=== PATIENT | female | born 1935 | race Caucasian/White ===

== ENCOUNTER 2020-01-11 10:05 | Inpatient (IN) ==
--- NOTE | 2020-01-11 10:16 | Emergency Department Note ---
Impression & Plan Acute ischemic left MCA stroke, Hypoxic, CHF (congestive heart failure) ED Provider Note NAME: SABI MONSALVE AGE: 84 SEX: F : 1935 ARRIVES VIA: Ambulance INFORMANT: EMS ED PROVIDER(S): Walter Maki DO CHIEF COMPLAINT: Altered mental status HPI: Patient is an 84-year-old female who was brought in by EMS. She woke up and was acting normally around 5 AM. They note that she was found by the to be unresponsive. EMS was called. They found to have a right-sided upper extremity flaccid and unresponsive and hypoxic. History is limited. They noted decreased breath sounds on the left and with hypoxia called in For medical command. History is otherwise limited with exception that her diuretics have recently been increased. ROS: Limited secondary to mentation PAST MEDICAL HISTORY:See Below PAST SURGICAL HISTORY:See Below FAMILY HISTORY:See Below SOCIAL HISTORY:See Below HOME MEDICATIONS:See Below ALLERGIES:See Below VITALS:See Below PHYSICAL EXAMINATION: GENERAL: Lying in bed, on nonrebreather, ill-appearing EYE EXAM: Ill-appearing with a leftward gaze OROPHARYNX: mucous membranes are dry NECK: +JVD LUNGS: Crackles bilaterally. Normal chest wall mechanics HEART: no murmurs, S1 normal and S2 normal ABDOMEN: abdomen soft, non-tender, normo-active bowel sounds, no masses, no rebound or guarding. BACK: Back is symmetrical on inspection and there is no deformity, no midline tenderness, no CVA tenderness. SKIN: no rashes and no bruising UPPER EXTREMITIES: upper extremities are grossly normal. LOWER EXTREMITIES: No pitting edema. NEURO EXAM: Laying on bed unresponsive with a leftward gaze eyes open moving left upper extremity spontaneously, no movement in right upper. Withdrawals lower extremities MEDICAL DECISION MAKING: Patient is an 84-year-old female brought in by EMS who I received medical c mand call on and called a stroke alert. She had a flaccid right upper extremity. She was also concerned as patient had diminished breath sounds on the left and was hypoxic and placed on nonrebreather. Instead of going straight to CAT scan she was taken into P1. Chest x-ray performed. Appears to be consistent with CHF. Taken immediately to CT. IV was established blood work was obtained.Labs showed no significant leukocytosis or anemia. INR at 1.5. BMP with slightly elevated glucose. Lactate was elevated at 1.7. LFTs and bilirubin was fairly unremarkable. Troponin was detectable at 0.177. Urine tox is negative. CT head as well as CT angios of the head and neck showed proximal left MCA occlusion. I discussed this with both radiology and [facility] tele-stroke. They evaluate the patient. Patient remained on nonrebreather due to hypoxia while in the ER. Extensive conversations with both the and the Daughter. At this time due to the large occlusion with findings already seen on the Noncon of the head showing ischemic brain neurology felt this patient would not Benefit from transfer. Last known well was 5 PM and she was out of the TPA window. Long conversation with patient's Family as she may benefit from comfort care if she has no improvement In regards to the hypoxia and stroke symptoms as she would not want any significant intervention per her wishes.Discussed with hospitalist for admission. Triage Nursing notes reviewed. Prior medical records reviewed Vital Signs: reviewed and remarkable for Hypoxic Differential diagnosis: Differential Diagnosis includes but is not limited to ischemic Stroke, hemorrhagic stroke, bells palsy, mass, neoplasm, migraine headache, seizure, subarachnoid hemorrhage, TIA, and transient global amnesia. ER treatment provided: See below Diagnostics interpreted by me: ECG:A. fib rate of 69 Left axis DWI in the high lateral leads Septal Q waves Nonspecific ST wave changes in the lateral leads Cardiac Monitoring: An order was placed for continuous cardiac monitoring. The monitor shows a rate of 68 with afib rhythm. Laboratory studies: As stated above and show below. Imaging studies: CT head, CT Rehana of the head neck shows large left MCA occlusion Consultation(s): Discussed with [facility] tele-stroke neurology. Decision was made to not transfer for intervention due to CT findings. ED COURSE: Procedures: none Critical Care: I have personally spent 55 minutes of critical care time in the direct management of this patient. This includes bedside care, interpretation of diagnostic studies, and testing, discussion with consultants, patient, and family members, and other required patient management activities. This 55 minutes is in excess of all separately billable procedures. Past Med/Surg History Medical History Small bowel obstruction due to adhesions Family History Other Coronary heart disease Social History Smoking Status: Never smoker Hx Alcohol Use: No Hx Substance Use: No Preferred Language: Croatian Communication Ability: Unable Beliefs That Will Affect Care: None marital status: Current Living Situation: Spouse Other Information That Helps Us Care for You: No Feels Safe at Home: No Safety Concerns: Feels Safe At This Time Allergies Allergies Allergy/AdvReac Type Severity Reaction Status Date / Time No Known Allergies Allergy Unverified 01/11/20 12:11 Results & Data (ED) Vital Signs Vital Signs - 24 hr 01/11/20 10:11 01/11/20 10:28 01/11/20 10:30 Temperature Temperature Source Pulse Rate 72 69 Pulse Rate from SpO2 Sensor 77 71 Pulse Rhythm Pulse Strength Respiratory Rate Respiratory Effort / Characteristics Respiratory Depth Respiratory Pattern Blood Pressure 168/112 H Blood Pressure Mean 133 Blood Pressure Position Pulse Oximetry 99 100 Oxygen Delivery Method Non-rebreather Non-rebreather Oxygen Flow Rate 10 10 Sepsis Recent Fever Within 48 Hours Sepsis New/Unexplained Change in Mental Status Sepsis Action Taken by Nursing Oxygen Flow Rate - Titration Pulse Oximetry Post Tiitration 01/11/20 10:40 01/11/20 10:45 01/11/20 10:51 Temperature 37 C Temperature Source Oral Pulse Rate 82 66 Pulse Rate from SpO2 Sensor 70 Pulse Rhythm Regular Pulse Strength Normal Respiratory Rate 18 Respiratory Effort / Characteristics Non-Labored Spontaneous Respiratory Depth Normal Respiratory Pattern Regular Blood Pressure 168/112 H Blood Pressure Mean 130 Blood Pressure Position Lying Pulse Oximetry 96 97 Oxygen Delivery Method Non-rebreather Non-rebreather Non-rebreather Oxygen Flow Rate 10 10 Sepsis Recent Fever Within 48 Hours No Sepsis New/Unexplained Change in Mental Status Yes Sepsis Action Taken by Nursing No Action Required Oxygen Flow Rate - Titration Pulse Oximetry Post Tiitration 01/11/20 11:00 01/11/20 11:02 01/11/20 11:15 Temperature Temperature Source Pulse Rate 63 68 66 Pulse Rate from SpO2 Sensor 62 69 63 Pulse Rhythm Pulse Strength Respiratory Rate Respiratory Effort / Characteristics Respiratory Depth Respiratory Pattern Blood Pressure 178/84 H Blood Pressure Mean 129 Blood Pressure Position Pulse Oximetry 95 99 100 Oxygen Delivery Method Non-rebreather Non-rebreather Non-rebreather Oxygen Flow Rate 10 10 10 Sepsis Recent Fever Within 48 Hours Sepsis New/Unexplained Change in Mental Status Sepsis Action Taken by Nursing Oxygen Flow Rate - Titration Pulse Oximetry Post Tiitration 01/11/20 11:16 01/11/20 11:17 01/11/20 11:30 Temperature Temperature Source Pulse Rate 64 63 59 L Pulse Rate from SpO2 Sensor 65 65 60 Pulse Rhythm Pulse Strength Respiratory Rate Respiratory Effort / Characteristics Respiratory Depth Respiratory Pattern Blood Pressure 175/107 H Blood Pressure Mean 133 Blood Pressure Position Pulse Oximetry 99 100 100 Oxygen Delivery Method Non-rebreather Non-rebreather Non-rebreather Oxygen Flow Rate 10 10 10 Sepsis Recent Fever Within 48 Hours Sepsis New/Unexplained Change in Mental Status Sepsis Action Taken by Nursing Oxygen Flow Rate - Titration Pulse Oximetry Post Tiitration 01/11/20 11:31 01/11/20 11:45 01/11/20 11:46 Temperature Temperature Source Pulse Rate 69 69 65 Pulse Rate from SpO2 Sensor 70 67 63 Pulse Rhythm Pulse Strength Respiratory Rate Respiratory Effort / Characteristics Respiratory Depth Respiratory Pattern Blood Pressure 162/88 H 172/81 H Blood Pressure Mean 126 105 Blood Pressure Position Pulse Oximetry 99 100 100 Oxygen Delivery Method Non-rebreather Non-rebreather Non-rebreather Oxygen Flow Rate 8 8 8 Sepsis Recent Fever Within 48 Hours Sepsis New/Unexplained Change in Mental Status Sepsis Action Taken by Nursing Oxygen Flow Rate - Titration Pulse Oximetry Post Tiitration 01/11/20 11:47 01/11/20 12:00 01/11/20 12:01 Temperature Temperature Source Pulse Rate 70 59 L 58 L Pulse Rate from SpO2 Sensor 68 61 59 L Pulse Rhythm Pulse Strength Respiratory Rate Respiratory Effort / Characteristics Respiratory Depth Respiratory Pattern Blood Pressure 175/80 H Blood Pressure Mean 122 Blood Pressure Position Pulse Oximetry 100 99 99 Oxygen Delivery Method Nasal Cannula Nasal Cannula Nasal Cannula Oxygen Flow Rate 2 2 2 Sepsis Recent Fever Within 48 Hours Sepsis New/Unexplained Change in Mental Status Sepsis Action Taken by Nursing Oxygen Flow Rate - Titration Pulse Oximetry Post Tiitration 01/11/20 12:09 01/11/20 12:15 01/11/20 12:16 Temperature Temperature Source Pulse Rate 59 L 55 L Pulse Rate from SpO2 Sensor 57 L 57 L Pulse Rhythm Pulse Strength Respiratory Rate Respiratory Effort / Characteristics Respiratory Depth Respiratory Pattern Blood Pressure 160/70 H Blood Pressure Mean 95 Blood Pressure Position Pulse Oximetry 99 97 97 Oxygen Delivery Method Non-rebreather Nasal Cannula Nasal Cannula Oxygen Flow Rate 8 2 2 Sepsis Recent Fever Within 48 Hours Sepsis New/Unexplained Change in Mental Status Sepsis Action Taken by Nursing Oxygen Flow Rate - Titration 2 Pulse Oximetry Post Tiitration 98 01/11/20 12:30 Temperature Temperature Source Pulse Rate 58 L Pulse Rate from SpO2 Sensor 56 L Pulse Rhythm Pulse Strength Respiratory Rate Respiratory Effort / Characteristics Respiratory Depth Respiratory Pattern Blood Pressure 161/79 H Blood Pressure Mean 93 Blood Pressure Position Pulse Oximetry 96 Oxygen Delivery Method Nasal Cannula Oxygen Flow Rate 2 Sepsis Recent Fever Within 48 Hours Sepsis New/Unexplained Change in Mental Status Sepsis Action Taken by Nursing Oxygen Flow Rate - Titration Pulse Oximetry Post Tiitration Laboratory Data Result diagrams: 01/11/20 10:33 01/11/20 10:33 Lab Results 01/11/20 01/11/20 01/11/20 Range/Units 10:33 10:33 10:33 WBC 6.64 (4.8-10.8) K/uL RBC 4.69 (4.2-5.4) M/uL Hgb 13.6 (12.0-16.0) g/dL Hct 42.7 (37-47) % MCV 91.0 (80-100) fL MCH 29.0 (25-34) pg MCHC 31.9 L (32-36) g/dL RDW Std Deviation 54.2 H (36.4-46.3) fL RDW Coeff of Ilnk 16.5 H (11.5-14.5) % Plt Count 219 (130-400) K/uL MPV 10.1 (7.4-10.4) fL Immature Gran % (Auto) 0.5 % Neut % (Auto) 75.5 % Lymph % (Auto) 16.0 % Daggett % (Auto) 7.8 % Eos % (Auto) 0.0 % Baso % (Auto) 0.2 % Neut # (Auto) 5.02 (1.4-6.5) K/uL Lymph # (Auto) 1.06 L (1.2-3.4) K/uL Daggett # (Auto) 0.52 (0.11-0.59) K/uL Eos # (Auto) 0.00 (0-0.5) K/uL Baso # (Auto) 0.01 (0-0.2) K/uL Immature Gran # (Auto) 0.03 H (0.00-0.02) K/uL PT 15.1 H (9.0-12.0) Seconds INR 1.5 H (0.9-1.1) APTT 30.2 (21.0-31.0) Seconds PTT Ratio 1.1 Sodium 137 (136-145) mmol/L Potassium 3.6 (3.5-5.1) mmol/L Chloride 102 (98-107) mmol/L Carbon Dioxide 24 (21-32) mmol/L Anion Gap 11.0 (3-11) BUN 26 H (7-18) mg/dl Creatinine 1.12 (0.6-1.2) mg/dl Est Cr Clr Drug Dosing 33.7 ml/min Est GFR ( Amer) 51.5 Est GFR (Non-Af Amer) 44.4 BUN/Creatinine Ratio 23.3 H (10-20) Glucose 144 H (70-99) mg/dl POC Glucose (70-99) mg/dl Estimat Average Glucose mg/dl Hemoglobin A1c (4.5-5.6) % Lactate (0.4-2.0) mmol/L Calcium 9.0 (8.5-10.1) mg/dl Magnesium 1.8 (1.8-2.4) mg/dl Total Bilirubin 1.7 H (0.2-1) mg/dl AST 25 (15-37) U/L ALT 16 (12-78) U/L Alkaline Phosphatase 52 (45-117) U/L Troponin I 0.177 H* (0-0.045) ng/ml Total Protein 6.7 (6.4-8.2) gm/dl Albumin 3.1 L (3.4-5.0) gm/dl Globulin 3.6 (2.5-4.0) gm/dl Albumin/Globulin Ratio 0.9 (0.9-2) 01/11/20 01/11/20 01/11/20 Range/Units 10:33 10:33 10:39 WBC (4.8-10.8) K/uL RBC (4.2-5.4) M/uL Hgb (12.0-16.0) g/dL Hct (37-47) % MCV (80-100) fL MCH (25-34) pg MCHC (32-36) g/dL RDW Std Deviation (36.4-46.3) fL RDW Coeff of Link (11.5-14.5) % Plt Count (130-400) K/uL MPV (7.4-10.4) fL Immature Gran % (Auto) % Neut % (Auto) % Lymph % (Auto) % Daggett % (Auto) % Eos % (Auto) % Baso % (Auto) % Neut # (Auto) (1.4-6.5) K/uL Lymph # (Auto) (1.2-3.4) K/uL Daggett # (Auto) (0.11-0.59) K/uL Eos # (Auto) (0-0.5) K/uL Baso # (Auto) (0-0.2) K/uL Immature Gran # (Auto) (0.00-0.02) K/uL PT (9.0-12.0) Seconds INR (0.9-1.1) APTT (21.0-31.0) Seconds PTT Ratio Sodium (136-145) mmol/L Potassium (3.5-5.1) mmol/L Chloride (98-107) mmol/L Carbon Dioxide (21-32) mmol/L Anion Gap (3-11) BUN (7-18) mg/dl Creatinine (0.6-1.2) mg/dl Est Cr Clr Drug Dosing ml/min Est GFR ( Amer) Est GFR (Non-Af Amer) BUN/Creatinine Ratio (10-20) Glucose (70-99) mg/dl POC Glucose 160 H (70-99) mg/dl Estimat Average Glucose 123 mg/dl Hemoglobin A1c 5.9 H (4.5-5.6) % Lactate 2.7 H* (0.4-2.0) mmol/L Calcium (8.5-10.1) mg/dl Magnesium (1.8-2.4) mg/dl Total Bilirubin (0.2-1) mg/dl AST (15-37) U/L ALT (12-78) U/L Alkaline Phosphatase (45-117) U/L Troponin I (0-0.045) ng/ml Total Protein (6.4-8.2) gm/dl Albumin (3.4-5.0) gm/dl Globulin (2.5-4.0) gm/dl Albumin/Globulin Ratio (0.9-2) Administered Medications Aspirin (Aspirin 300 Mg Supp) 300 mg ID Q24H TOÑA Stop: 02/10/20 13:59 Last Admin: 01/11/20 14:33 Dose: 300 mg Documented by: [id number] Discontinued Medications Furosemide (Furosemide 40 Mg/4 Ml Vial) 40 mg IV NOW STA Stop: 01/11/20 12:45 Last Admin: 01/11/20 13:26 Dose: 40 mg Documented by: [id number] Discharge Plan Visit Data Chief Complaint: Stroke Alert ED Provider: Walter Maki Discharge Problem: Acute ischemic left MCA stroke, Hypoxic, CHF (congestive heart failure) Patient Disposition: Admitted As Inpatient Discharge Instructions Interventions: ED Discharge Assessment Last Done: 01/11/20 13:11 Discharge Problem: CHF (congestive heart failure) Qualifiers: Heart failure type: unspecified Heart failure chronicity: acute Qualified Code(s): I50.9 - Heart failure, unspecified
--- NOTE | 2020-01-11 10:27 | XRay Report ---
XR chest 1V portable CLINICAL HISTORY: hypoxic COMPARISON STUDY: No previous studies for comparison. FINDINGS: A skinfold project over the right hemithorax. There is no pneumothorax. There is no definit e pleural effusion. Interstitial thickening is noted. Left perihilar opacities are noted. There is mo derate cardiomegaly. Widening of the right paratracheal stripe is noted. IMPRESSION: 1. Interstitial thickening consistent with pulmonary edema. 2. Left perihilar opacity which likely reflects pulmonary edema although superimposed pneumonia could appear similar. Radiographic follow up is recommended. 3. Widely right paratracheal stripe. This is likely due to vessels but can be assessed on the neck CT A which has been ordered. ACT 112: Negative or not required by law. Electronically signed by: Kalen Collins M.D. 01/11/2020 10:26 AM
--- NOTE | 2020-01-11 10:39 | CT Scan Report ---
CT ANGIOGRAPHY OF THE NECK WITH CONTRAST CLINICAL HISTORY: Stroke evaluation COMPARISON STUDY: No previous studies for comparison. Technique: CT angiography of the carotid and vertebral arteries was obtained using [employer] 320 IV and 3D reconstruction on an independent workstation. NASCET criteria was utilized. Automated exposure c ontrol was utilized for the study. A dose lowering technique was utilized adhering to the principles of ALARA. CT DOSE: 1000.70 mGy.cm Findings: This exam is compromised by motion artifact and difficulty with timing of bolus. Visualized portions of the upper chest partially visualize bilateral pleural effusions, right larger left. Ther e is interlobular septal thickening consistent with pulmonary edema. Right upper lobe airspace opacit y is noted. There is no cervical spine fracture. There is no cervical lymphadenopathy. An apparent 2. 6 cm left upper mediastinal nodule likely reflects a portion of the thyroid gland or an exophytic thy roid nodule. Vessels are suboptimally assessed on this exam. There is moderate plaque within the prox imal right internal carotid artery without significant stenosis. There is also moderate plaque within the proximal left internal carotid artery without cirrhosis. The left vertebral artery is dominant a nd patent. The right vertebral artery is diminutive. The origin of the right vertebral artery is not well visualized on this examination. There is no dissection within the major vessels within the neck. CT of the head will be reported separately. IMPRESSION: 1. Exam mildly compromised by artifact. Moderate plaque within the proximal bilateral internal caroti d arteries without severe stenosis. At most, mild narrowing of the proximal right internal carotid ar jaspreet. 2. Dominant, patent left vertebral artery. Hypoplastic right vertebral artery. 3. Evidence for interstitial and alveolar edema within visualized portions of the lungs. Partially vi sualize bilateral pleural effusions, right larger than left. ACT 112: Negative or not required by law. Electronically signed by: Kalen Collins M.D. 01/11/2020 10:37 AM
--- NOTE | 2020-01-11 10:45 | CT Scan Report ---
HEAD CT NONCONTRAST CT DOSE: HISTORY: Stroke symptoms. TECHNIQUE: Multiaxial CT images of the head were performed without the use of intravenous contrast. A utomated exposure control was utilized for this study. A dose lowering technique was utilized adheri ng to the principles of ALARA. Comparison: None. Findings: The paranasal sinuses and mastoid air cells are clear. The calvarium and skull base are int act. There is no mass, hematoma, midline shift. Loss of the angulo-white differentiation involving the left frontal temporal lobe as well as the left basal ganglia. The total area measures approximately 4 .8 cm and is consistent with a left MCA infarct. Impression: Moderate to large acute left MCA territory infarct. ACT 112: Negative or not required by law. Electronically signed by: Agustin Sanchez M.D. 01/11/2020 10:44 AM
--- NOTE | 2020-01-11 10:48 | CT Scan Report ---
CTA ANGIOGRAPHY OF THE HEAD CLINICAL HISTORY: Stroke evaluation COMPARISON STUDY: No previous studies for comparison. TECHNIQUE: Helical axial images of the head were obtained following uneventful intravenous administr ation of 120 cc of [employer] 320. Sagittal and coronal reconstructions were viewed as well as maximal i ntensity projections on an independent 3-D workstation. Automated exposure control was utilized for the study. A dose lowering technique was utilized adhering to the principles of ALARA. FINDINGS: Exam is compromised by motion artifact. Hypodensity within the left frontal and temporal lo bes represents acute infarct. No acute intracranial hemorrhage, midline shift or mass effect is prese nt. There is moderate plaque within the bilateral cavernous carotids. There is abrupt cut off at the origin of the left middle cerebral artery. This suggest an embolus. Markedly diminished flow within t he more distal branches when compared to the right is noted. The right vertebral artery is hypoplasti c. Left vertebral artery is patent. The left A1 segment is diminutive. There is suspected severe sten osis of the right A2 segment. Moderate multifocal stenoses within the right posterior cerebral artery noted. IMPRESSION: 1. Abrupt occlusion of the left middle cerebral artery at the vessel origin. This is likely due to an embolus. Resultant hypodensity within left MCA territory consistent with acute infarct. No hemorrhag e or mass effect at this time. Findings discussed with Dr. Maki at time of dictation. 2. Additional moderate to severe multifocal stenoses within the intracranial vessels, as described ab ove. ACT 112: Negative or not required by law. Electronically signed by: Kalen Collins M.D. 01/11/2020 10:46 AM
[2020-01-11 10:55] LABS: INR 1.5 (0.9-1.1); Partial Thromboplastin Ratio 1.1; Partial Thromboplastin Time 30.2 Seconds (21.0-31.0); Prothrombin Time 15.1 Seconds (9.0-12.0)
[2020-01-11 10:56] LABS: Basophils # (auto) 0.01 K/uL (0-0.2); Basophils % (auto) 0.2 %; Hematocrit (blood only) 42.7 % (37-47); Hemoglobin 13.6 g/dL (12.0-16.0); Immature Granulocytes # (auto) 0.03 K/uL (0.00-0.02); Immature Granulocytes % (auto) 0.5 %; Lymphocytes # (auto) 1.06 K/uL (1.2-3.4); Mean Corpuscular Hgb Conc 31.9 g/dL (32-36); Mean Platelet Volume 10.1 fL (7.4-10.4); Monocytes # (auto) 0.52 K/uL (0.11-0.59); Monocytes % (auto) 7.8 %; Neutrophils # (auto) 5.02 K/uL (1.4-6.5); Neutrophils % (auto) 75.5 %; Platelet Count 219 K/uL (130-400); RDW Coefficient of Variation 16.5 % (11.5-14.5); RDW Standard Deviation 54.2 fL (36.4-46.3); Red Blood Count 4.69 M/uL (4.2-5.4); White Blood Count 6.64 K/uL (4.8-10.8)
[2020-01-11 11:01] LABS: Albumin Level 3.1 gm/dl (3.4-5.0); BUN Creatinine Ratio 23.3 (10-20); Creatinine Clr Calc Pharmacy 33.7 ml/min; Est GFR (African American) 51.5; Est GFR (Non-African American) 44.4; Magnesium 1.8 mg/dl (1.8-2.4); Potassium 3.6 mmol/L (3.5-5.1)
[2020-01-11 11:37] LABS: Albumin Globulin Ratio 0.9 (0.9-2); Bilirubin,Total 1.7 mg/dl (0.2-1); Globulin 3.6 gm/dl (2.5-4.0); Total Protein 6.7 gm/dl (6.4-8.2); Troponin I 0.177 ng/ml (0-0.045)
--- NOTE | 2020-01-11 12:19 | History & Physical Report ---
Date of Service January 11, 2020 Assessment & Plan (1) CVA (cerebral vascular accident): Patient was brought in with unclear onset time large MCA distribution stroke is seen on imaging. Stroke evaluation did not recommend lytic therapy. Family is at the bedside and they were told of the significance of her stroke. They confirm she is a DNR candidate for the future. We will pursue supportive care and evaluate her progress over the next few days before making a determination of the pursue hospice care. At this time her mental status prohibits swallowing at this time she will be n.p.o. CT scan brain 01/11/2020 Impression: Moderate to large acute left MCA territory infarct. CT angiogram of head 01/03/2020 1. Abrupt occlusion of the left middle cerebral artery at the vessel origin. This is likely due to an embolus. Resultant hypodensity within left MCA territory consistent with acute infarct. No hemorrhage or mass effect at this time. Findings discussed with Dr. Maki at time of dictation. 2. Additional moderate to severe multifocal stenoses within the intracranial vessels CT angiogram of neck 01/03/20201. Exam mildly compromised by artifact. Moderate plaque within the proximal bilateral internal carotid arteries without severe stenosis. At most, mild narrowing of the proximal right internal carotid artery. 2. Dominant, patent left vertebral artery. Hypoplastic right vertebral artery. 3. Evidence for interstitial and alveolar edema within visualized portions of th e lungs. Partially visualize bilateral pleural effusions, right larger than left. (2) Atrial fibrillation: I phoned to pharmacy patient typically takes carvedilol 3.25 twice daily her states she is been on Eliquis for thromboembolic prevention she typically also has other antihypertensives including lisinopril 5 Lasix in the morning and 40 at night and atorvastatin 20 certainly with her swallowing issues these will be held PRN metoprolol IV will be offered her chest x-ray looks to have pulmonary edema on presentation subsequently IV fluids would not be employed both dose of Lasix will be given History of Present Illness Primary Care Provider: Sree Gallegos M.D. 84-year-old female who was brought in by EMS. She woke up and was acting normally around 5 AM. They note that she was found by the to be unresponsive. EMS was called. They found a right-sided upper extremity flaccid unresponsive and hypoxic. History is limited. They noted decreased breath sounds on the left and with hypoxia called in For medical command.History is otherwise limited with exception that her diuretics have recently been increased. Allergies Allergy/AdvReac Type Severity Reaction Status Date / Time No Known Allergies Allergy Unverified 01/11/20 12:11 Past Med/Surg History Medical History (Updated 01/11/20 @ 12:35 by Robbie Espinoza MD) Small bowel obstruction due to adhesions Family History (Updated 01/11/20 @ 12:35 by Robbie Espinoza MD) Other Coronary heart disease Social History (Updated 01/11/20 @ 12:35 by Robbie Espinoza MD) Smoking Status: Never smoker Feels Safe at Home: Yes Review of Systems Review of Systems: Unobtainable due to cognitive status Physical Exam Physical Exam: The patient appeared obtunded with minimal responsiveness Vital signs as documented. Head exam is normocephalic atraumatic no scleral icterus pupils are small with minimal reaction Neck is with 3 cm JVD, thyromegaly, I cannot hear any carotid bruits. Lungs are fine rales at the bases Cardiac exam, irregularly irregular without murmurs Abdominal exam reveals normal bowel sounds, soft non tender, no masses Extremities are chronic venous stasis changes and 1+ edema Neurologic exam is responsive to stimuli flaccid right side upgoing toes bilaterally Skin is with changes to her lower extremities Results & Data Results & Data ([facility]) Vital Signs (Past 12 Hours) Vital Signs Temp Pulse Resp BP Pulse Ox 01/11/20 12:09 99 01/11/20 11:46 65 172/81 H 100 01/11/20 11:45 69 100 01/11/20 11:31 69 162/88 H 99 01/11/20 11:30 59 L 100 01/11/20 11:17 63 100 01/11/20 11:16 64 175/107 H 99 01/11/20 11:15 66 100 01/11/20 11:02 68 178/84 H 99 01/11/20 11:00 63 95 01/11/20 10:45 66 97 01/11/20 10:40 98.6 F 82 18 168/112 H 96 01/11/20 10:30 69 100 01/11/20 10:28 72 99 01/11/20 10:11 168/112 H EKG shows atrial fibrillation controlled ventricular rate PG Care Time/CCT Total # of Minutes Spent Total Time Spent with Patient: Total time spent is greater than 50% in coordination of care (as documented) at patient's floor/unit and/or counseling patient: Coding Level of Care Code 96604 Initial Inpt Care Lvl 3 Diagnoses CVA (cerebral vascular accident) I63.9 Atrial fibrillation I48.91
[2020-01-11] MEDS ORDERED: FUROSEMIDE 40 MG/4 ML VIAL IV STA (12:44)
--- NOTE | 2020-01-11 13:47 | Electrocardiogram Report ---
Test Reason : Blood Pressure : / mmHG Vent. Rate : 069 BPM Atrial Rate : 250 BPM P-R Int : 000 ms QRS Dur : 112 ms QT Int : 486 ms P-R-T Axes : 000 -51 123 degrees QTc Int : 520 ms Poor data quality, interpretation may be adversely affected Atrial fibrillation with premature ventricular or aberrantly conducted complexes Left anterior fascicular block Possible Old Septal infarct Nonspecific ST and T wave abnormality Anterolateral leads Abnormal ECG No previous ECGs available Confirmed by Sudeep Daugherty ([id number]) on 01/11/2020 1:46:30 PM Referred By: REFERRED SELF Confirmed By:Sudeep Daugherty
[2020-01-11] MEDS ORDERED: ONDANSETRON INJ 2 MG/ML 2 ML VIAL IV PRN (13:52)
[2020-01-11] MEDS ORDERED: METOPROLOL TARTRATE 1 MG/ML VIAL IV PRN ×2 (13:52→16:02)
[2020-01-11] MEDS ORDERED: PHARMACIST DISCHARGE MED REC CONSULT PRN (13:52)
[2020-01-11 14:18] LABS: Estimated Average Glucose 123 mg/dl; Hemoglobin A1C 5.9 % (4.5-5.6)
--- NOTE | 2020-01-11 14:23 | Neurology Consultation ---
Date of Consultation January 11, 2020 Assessment & Plan (1) Atrial fibrillation: (2) Acute ischemic left MCA stroke: Madeleine Garcia is an 84 yo woman w/ PMH of AFib on eliquis, HTN and h/o SBO 2/2 adhesions who p/t [facility] after acute onset of R-sided weakness and aphasia. Symptom localization: left MCA/ICA terminus Stroke mechanism: cardioembolic Stroke WorkUp: - CT head: shows a large hypodensity in the left MCA territory, ASPECT score 5. 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, and mild bilateral ICA stenosis with diffuse mild intra- and extracranial atherosclerosis - MRI brain: pending - TTE: pending - Telemetry: Afib - A1c: 5.9 - FLP: pending - Troponin, TSH: 0.177, pending - UDS negative Stroke Management: - Acute treatment: ASA - Continuous cardiac monitoring - Vitals, Neurochecks, NIHSS per unit routine - BP parameters: SBP CAP 220, hold home anti-hypertensives for permissive HTN, IV Labetalol/Hydralazine PRN - Obtain MRI brain to evaluate stroke burden (if unable to obtain MRI brain, just obtain repeat CTH at 24 hours) - Repeat CTH at 24 hours from initial scan (or sooner if significant mental status change/Lucrecia's response/pupil asymmetry) - Patient is on swell watch for next 3-5 days (monitor for [place]'s response (bradycardia/HTN) and pupil asymmetry suggesting herniation) - Complete ischemic stroke workup with TTE without bubble, fasting lipid panel, TSH, serial troponins - Consult speech, PT, OT for supportive management - Will cemetery counselor concerning stroke education, smoking cessation, healthy diet, physical activity, weight loss - Follow up with PCP for assistance with outpatient goals (BP <130/80, LDL <70, A1c <7) - Follow up in neurology clinic in 6-8 weeks Secondary Stroke Prevention: - Antiplatelet: ASA 300mg MD daily - Anticoagulation: hold home eliquis at this time pending results of further imaging - Statin: Atorvastatin 40mg daily (ok to hold pending placement of NGT) HTN: - BP parameters, as above - Hold home BP meds for now in favor of permissive HTN - Serial troponins pending FEN/GI: - Diet: NPO until cleared by Speech evaluation. Recommend early NGT to give meds/nutrition. - Monitor lytes and replete PRN Glucose Control: - Sliding scale insulin and accuchecks per primary team to avoid hyperglycemia Thank you for this interesting consult. Plan of care was discussed with primary team. Please call with any questions. History of Present Illness Attending Physician: Robbie Espinoza MD History of Present Illness Madeleine Garcia is an 84 yo woman w/ PMH of AFib on eliquis, HTN and h/o SBO 2/2 adhesions who p/t [facility] after acute onset of R-sided weakness and aphasia. 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 In the ED, patient was afebrile, BP 168/112, heart rate 72, respiratory rate 18, satting 99% on room air. EKG notable for atrial fibrillation. Labs notable for WBC 6.64, hemoglobin 13.6, platelets 219, INR 1.5, sodium 137, potassium 3.6, BUN 26, creatinine 1.12, glucose 144, lactate 2.7, calcium/magnesium within normal, troponin mildly elevated 0.177. Imaging independently reviewed. CT head shows a large hypodensity in the left MCA territory, ASPECT score 5. CTA H&N notable for a tandem left ICA terminus/left MCA occlusion, hypoplastic right vertebral artery with termination in the right PICA, and mild bilateral ICA stenosis with diffuse mild intra- and extracranial atherosclerosis. On examination, she was somnolent and briefly opened eyes to orbital pressure and doll's eye movements. Family reports that she was in her normal state of health until this morning. reports that she woke up around 5am normal and went to the living room to watch tv. He found her there slumped over on the sofa around 8am, prompting presentation to the ED. Family believe that she has been taking her home apixaban as prescribed with no recent missed doses. Stroke Workflow: Where patient arrived from: home Time patient arrived in ED: 10:11 Triaged as Trauma: N In-house stroke: n/a Mode of arrival: Ambulance CT ASPECT: 5 Time IV tpa is given: NA tPA bolus: NA tPA dose: NA If tpa not given, why not: on eliquis at home If delay >60min after hospital arrival, why: n/a If no IA therapy, why not: Poor ASPECT Patient Features: Admission NIHSS: 27UN Admission Modified Larimer Scale: 1 Time patient last seen well: 5am on 01/11/20 Wake up stroke: No Intubation status: Not intubated Stroke Risk Factors: Hypertension: Y Hyperlipidemia: N Atrial Fib: Y Tobacco: N Diabetes: N Taking NOAC or warfarin: Y, eliquis Allergies Allergy/AdvReac Type Severity Reaction Status Date / Time No Known Allergies Allergy Unverified 01/11/20 12:11 Patient History Medical History Small bowel obstruction due to adhesions Family History Other Coronary heart disease Social History Smoking Status: Never smoker Communication Ability: Unable marital status: Feels Safe at Home: Yes Review of Systems Review of Systems: Unobtainable due to reduced consciousness Exam (Neuro) Physical Exam: General Exam: GEN: NAD, lying down in examination bed. HEENT: No conjunctival injection, no rhinorrhea. CV: RRR on monitor, no significant edema. PULM: Nonlabored respirations on 2L NC Neuro Exam: MS: Obtunded, only opens eyes to noxious stimuli. Unable to answer orientation questions or further mental status questions given aphasia/mental status. No clear neglect. CN: R VF cut, + blink to threat in left hemifield only.Normal fundoscopic exam. PERRLA OU. Left gaze preference, unable to overcome with dolls eyes maneuver. Mild R FP. Unable to assess hearing, uvula, tongue or SCMs 2/2 mental status. MOTOR: Normal bulk, flaccid RUE/RLE. Spontaneous movements observed in LUE/LLE, able to hold LUE off bed with slow drift to bed. RUE/RLE flaccid, no spontaneous movements observed. REFLEXES: 2+ at R biceps, triceps, brachioradialis, 1+ at L biceps, triceps, brachioradialis, absent patella, and absent Achilles bilaterally. Flexor plantar responses in left toe, mute in right toe. SENSORY: Grimaces and withdraws to noxious stimuli in RUE/RLE, no grimace or withdrawal noted in LUE/LLE. COORDINATION: unable to assess 2/2 mental status GAIT: Deferred due to physical status. NIH STROKE SCALE 1A. Level of Consciousness (0-3) = 2 1B. LOC Questions (0-2) = 2 1C. LOC Commands (0-2) = 2 2. Best Horizontal Gaze (0-2) = 2 3. Visual Watson (0-3) = 2 4. Facial Palsy (0-3) = 1 5. Motor Arm Right (0-4) = 3 Left (0-4) = 1 6. Motor Leg Right (0-4) = 4 Left (0-4) = 2 7. Limb Ataxia (0-2) = UN 8. Sensory (0-2) = 1 9. Best Language (0-3) = 3 10. Dysarthria (0-2) = 2 11. Extinction and Inattention (0-2) = 0 NIHSS TOTAL = 27UN Results & Data ([facility]) Vital Signs (Past 12 Hours) Vital Signs Temp Pulse Resp BP Pulse Ox 01/11/20 13:16 57 L 155/84 H 94 01/11/20 13:15 59 L 96 01/11/20 13:01 62 153/77 H 94 01/11/20 13:00 60 95 01/11/20 12:45 62 160/78 H 91 01/11/20 12:30 58 L 161/79 H 96 01/11/20 12:16 55 L 160/70 H 97 01/11/20 12:15 59 L 97 01/11/20 12:09 99 01/11/20 12:01 58 L 175/80 H 99 01/11/20 12:00 59 L 99 01/11/20 11:47 70 100 01/11/20 11:46 65 172/81 H 100 01/11/20 11:45 69 100 01/11/20 11:31 69 162/88 H 99 01/11/20 11:30 59 L 100 01/11/20 11:17 63 100 01/11/20 11:16 64 175/107 H 99 01/11/20 11:15 66 100 01/11/20 11:02 68 178/84 H 99 01/11/20 11:00 63 95 01/11/20 10:45 66 97 01/11/20 10:40 37 C 82 18 168/112 H 96 01/11/20 10:30 69 100 01/11/20 10:28 72 99 01/11/20 10:11 168/112 H PG Care Time/CCT Total # of Minutes Spent Total Time Spent with Patient: Total time spent is greater than 50% in coordination of care (as documented) at patient's floor/unit and/or counseling patient: Coding Level of Care Code 18441 Initial Inpt Care Lvl 3 Diagnoses Atrial fibrillation I48.91 Acute ischemic left MCA stroke I63.512
[2020-01-11] MEDS: ASPIRIN 300 MG SUPP PR SCH (14:33)
[2020-01-11 15:43] LABS: Amphetamines+Metham, Urine Neg (Neg); Barbiturates, Urine Neg (Neg); Benzodiazepine, Urine Neg (Neg); Cocaine, Urine Neg (Neg); MDMA (Ecstacy), Urine Neg (Neg); Methadone, Urine Neg (Neg); Opiate, Urine Neg (Neg); Phencyclidine, Urine Neg (Neg)
--- NOTE | 2020-01-11 19:23 | Magnetic Resonance Report ---
MRI OF THE BRAIN WITHOUT CONTRAST CLINICAL HISTORY: Acute stroke COMPARISON STUDY: CT scan dated 01/03/2020 FINDINGS: Sagittal T1, axial diffusion, proton density and T2 weighted axial, coronal FLAIR, and axial T1-weigh janett images were acquired. No intra or extra-axial mass lesions are visualized There is a large area of restricted water diffusion involving portions of the left frontal and tempor al lobes as well as the left basal ganglia. There is also a focus of restricted water diffusion withi n the medial left frontal lobe. The findings are indicative of an acute/subacute infarct. There is minimal mass effect on the left lateral ventricle secondary to amos-infarct edema. Proton density T2-weighted and FLAIR images reveal increased signal in the region of the left frontal and temporal lobe infarct. In addition there are multifocal areas of increased FLAIR signal within t he white matter likely on a small vessel basis. There is prominence of the extra-axial space, likely secondary to a dilated subarachnoid space from atrophy. There is increased T1 signal within the left middle cerebral artery indicative of thrombus.. There is no evidence of hemorrhage. There is basal ganglial mineralization. IMPRESSION: 1. Moderate to large acute/subacute left MCA distribution infarct. 2. Thrombus within the left middle cerebral artery. 3. No MRI evidence of acute hemorrhage. ACT 112: Negative or not required by law. Electronically signed by: Alfa Chahal M.D. 01/11/2020 7:21 PM
[2020-01-11] MEDS: HEPARIN SOD 5,000 UNIT/0.5 ML VIAL SQ SCH (20:57)
[2020-01-12 07:41] LABS: Basophils # (auto) 0.01 K/uL (0-0.2); Basophils % (auto) 0.1 %; Eosinophils # (auto) 0.03 K/uL (0-0.5); Eosinophils % (auto) 0.3 %; Hematocrit (blood only) 41.4 % (37-47); Hemoglobin 13.2 g/dL (12.0-16.0); Immature Granulocytes # (auto) 0.02 K/uL (0.00-0.02); Immature Granulocytes % (auto) 0.2 %; Lymphocytes # (auto) 1.03 K/uL (1.2-3.4); Lymphocytes % (auto) 10.1 %; Mean Corpuscular Hemoglobin 28.9 pg (25-34); Mean Corpuscular Hgb Conc 31.9 g/dL (32-36); Mean Corpuscular Volume 90.8 fL (80-100); Mean Platelet Volume 9.9 fL (7.4-10.4); Monocytes # (auto) 1.23 K/uL (0.11-0.59); Monocytes % (auto) 12.1 %; Neutrophils # (auto) 7.86 K/uL (1.4-6.5); Neutrophils % (auto) 77.2 %; Platelet Count 204 K/uL (130-400); RDW Coefficient of Variation 16.4 % (11.5-14.5); RDW Standard Deviation 53.8 fL (36.4-46.3); Red Blood Count 4.56 M/uL (4.2-5.4); White Blood Count 10.18 K/uL (4.8-10.8)
[2020-01-12 08:05] LABS: BUN Creatinine Ratio 26.4 (10-20); Calcium 8.7 mg/dl (8.5-10.1); Creatinine Clr Calc Pharmacy 33.9 ml/min; Est GFR (Non-African American) 49.2; Potassium 3.3 mmol/L (3.5-5.1)
[2020-01-12 08:16] LABS: Thyroid Stimulating Hormone 0.263 uIu/ml (0.300-4.500)
[2020-01-12 08:28] LABS: T4 Free Thyroxine 1.46 ng/dl (0.8-1.6)
[2020-01-12] MEDS: HEPARIN SOD 5,000 UNIT/0.5 ML VIAL SQ SCH ×2 (08:42→20:19)
--- NOTE | 2020-01-12 09:04 | Neurology Progress Note ---
Date of Service January 12, 2020 Assessment & Plan (1) Atrial fibrillation: (2) Acute ischemic left MCA stroke: Madeleine Garcia is an 84 yo woman w/ PMH of AFib on eliquis, HTN and h/o SBO 2/2 adhesions who p/t [facility] after acute onset of R-sided weakness and aphasia. Symptom localization: left MCA/ICA terminus Stroke mechanism: cardioembolic Stroke WorkUp: - CT head: shows a large hypodensity in the left MCA territory, ASPECT score 5. 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, and mild bilateral ICA stenosis with diffuse mild intra- and extracranial atherosclerosis - MRI brain: subacute infarct in the left predominantly inferior division of the MCA territory (affecting the left putamen and anterior temporal lobe), as well as a small area of subacute infarct in the left frontal lobe in the NIGEL distribution, mild to moderate SVID, mild generalized atrophy - TTE: EF 25-30%, inferior wall is akinetic, mild LVH, LV mildly dilated, remainder of ventricle is severely hypokinetic, no LV thrombus noted, severe TR, elevated V systolic pressure, grade III diastolic dysfunction with marked CHF, moderate aortic stenosis - Telemetry: Afib - A1c: 5.9 - FLP: 45 - Troponin, TSH: 0.177, 0.263 with normal free T4 - UDS negative Stroke Management: - Continuous cardiac monitoring - Vitals, Neurochecks, NIHSS per unit routine - BP parameters: SBP CAP 180, ok to restart home anti-hypertensives for BP CAP, goal normotension over the next 3-4 days - Repeat CTH at 24 hours from initial scan to monitor for hemorrhagic conversion. Repeat CTH if significant mental status change/Lucrecia's response/pupil asymmetry noted while admitted - Patient is on swell watch for next 2-4 days (monitor for Marine's response (bradycardia/HTN) and pupil asymmetry suggesting herniation); swell watch ends 01/16/20 - Complete ischemic stroke workup with serial troponins (consider cardiology consult given TTE results) - Consult speech, PT, OT for supportive management - Will crisis intervention counselor concerning stroke education, smoking cessation, healthy diet, physical activity, weight loss - Follow up with PCP for assistance with outpatient goals (BP <130/80, LDL <70, A1c <7) - Follow up in neurology clinic in 6-8 weeks Secondary Stroke Prevention: - Antiplatelet: ASA 300mg [place] daily - Anticoagulation: hold home eliquis. Plan to repeat CTH on 01/16/20 and if no significant hemorrhagic transformation (PH1/PH2 not present), would start warfarin given moderate aortic stenosis noted on echo. - Statin: Atorvastatin 40mg daily (ok to hold pending placement of NGT) HTN: - BP parameters, as above - Serial troponins pending FEN/GI: - Diet: NPO until cleared by Speech evaluation. Recommend early NGT to give meds/nutrition. - Monitor lytes and replete PRN Glucose Control: - Sliding scale insulin and accuchecks per primary team to avoid hyperglycemia Thank you for this interesting consult. Plan of care was discussed with primary team. Please call with any questions. Admission and Anticipated Discharge Date Admission Date: January 11, 2020 Subjective NAEs overnight. More alert this morning, still has global aphasia though and significant weakness in her RUE/RLE. Reviewed interim testing. Had MRI brain that showed subacute infarct in the left predominantly inferior division of the MCA territory (affecting the left putamen and anterior temporal lobe), as well as a small area of subacute infarct in the left frontal lobe in the NIGEL distribution, mild to moderate SVID, mild generalized atrophy Review of Systems Review of Systems: Unobtainable due to reduced consciousness Results & Data ([facility]) Vital Signs (Past 12 Hours) Vital Signs Temp Pulse Pulse Resp BP Pulse Ox 01/12/20 07:55 36.5 C 54 L 19 133/59 L 97 01/12/20 03:50 36.5 C 67 18 157/77 H 96 01/11/20 23:32 36.5 C 59 L 20 147/71 H 98 01/11/20 23:03 42 L Exam (Neuro) Physical Exam: General Exam: GEN: NAD, lying down in examination bed. HEENT: No conjunctival injection, no rhinorrhea. CV: RRR on monitor, no significant edema. PULM: Nonlabored respirations on 3L NC Neuro Exam: MS: Eyes to voice. Unable to answer orientation questions or further mental status questions given aphasia/mental status. No clear neglect. CN: R VF cut, + blink to threat in left hemifield only.Normal fundoscopic exam. PERRLA OU. Left gaze preference, unable to overcome with dolls eyes maneuver. + R FP. Unable to assess hearing, uvula, tongue or SCMs 2/2 mental status. MOTOR: Normal bulk, flaccid RUE/RLE. Spontaneous movements observed in LUE/LLE, able to hold LUE off bed with slow drift to bed. RUE/RLE flaccid, no spontaneous movements observed. REFLEXES: 2+ at R biceps, triceps, brachioradialis, 1+ at L biceps, triceps, brachioradialis, absent patella, and absent Achilles bilaterally. Flexor plantar responses in left toe, mute in right toe. SENSORY: Grimaces and withdraws to noxious stimuli in LUE/LLE, no grimace or withdrawal noted in RUE/RLE. COORDINATION: unable to assess 2/2 mental status GAIT: Deferred due to physical status. NIH STROKE SCALE 1A. Level of Consciousness (0-3) = 0 1B. LOC Questions (0-2) = 2 1C. LOC Commands (0-2) = 2 2. Best Horizontal Gaze (0-2) = 2 3. Visual Watson (0-3) = 2 4. Facial Palsy (0-3) = 1 5. Motor Arm Right (0-4) = 3 Left (0-4) = 0 6. Motor Leg Right (0-4) = 4 Left (0-4) = 1 7. Limb Ataxia (0-2) = UN 8. Sensory (0-2) = 1 9. Best Language (0-3) = 3 10. Dysarthria (0-2) = 2 11. Extinction and Inattention (0-2) = 0 NIHSS TOTAL = 23UN PG Care Time/CCT Total # of Minutes Spent Total Time Spent with Patient: Total time spent is greater than 50% in coordination of care (as documented) at patient's floor/unit and/or counseling patient: Coding Level of Care Code 42333 Subseq Hosp Care Lvl 3 Diagnoses Atrial fibrillation I48.91 Acute ischemic left MCA stroke I63.512
--- NOTE | 2020-01-12 12:06 | Hospitalist Progress Note ---
Date of Service January 12, 2020 Assessment & Plan (1) Acute cardioembolic stroke: significant left-sided MCA territory stroke with visible thrombus within the left MCA in this right-handed 84yo female. carotids on CTA neck do not suggest that the ICAs were the source for the stroke. I agree with neurology this was likely cardioembolic in origin. her significantly depressed LV function along with chronic a.fib - despite use of eliquis - likely caused her stroke. repeat head CT is stable and without hemorrhagic transformation today. I had a lengthy discussion with the patient's son, daughter, and regarding her status. it remains to be seen how much swallow, speech, and motor function she will regain over the short and long-term. the size of her stroke is quite concerning. cont NPO status. PT/OT/speech evals. heparin SC for DVT proph. ultimately will need to restart anticoagulation - likely coumadin rather than novel agent. lipids are controlled but would ultimately still need statin given her CAD history and now the stroke. HOB at 45 degrees. Aspiration and seizure precautions. Allow permissive HTN. Asa 300mg OK daily for now for secondary prevention. (2) Acute on chronic combined systolic and diastolic congestive heart failure: I suspect, based on the 's report of edema over the summer and her exertional fatigue/dyspnea, that she has been in CHF for some time. Clinically and radiographically she is still volume overloaded. Give lasix 20mg IV x 1 and follow. She will ultimately need BB and JUAN/ARB. Echo reviewed and findings noted. I have requested records from [facility] regarding prior testing (heart cath, etc). (3) Ischemic cardiomyopathy: Echo shows akinetic inferior wall and significant hypokinesis of other LV regions. This is c/w ischemic cardiomyopathy. By the daughter's report she had an NSTEMI in the past but this was not in her record. Was hospitalized in [place] - and perhaps [facility] - in the past for cardiac issues but details are not known. Records from [place] requested. See above in "CHF." (4) CAD (coronary artery disease): (5) Hypokalemia: Replace with IV KCL. repeat k and mag in am. (6) Atrial fibrillation: Rates controlled. Will ultimately need metoprolol and resumption of anticoagulation. (7) Chronic kidney disease, stage 3a: CrCl 30s BMP in am. (8) DVT prophylaxis: heparin SC I am quite concerned about her overall prognosis. Will need to take things day-to-day to assess any progress. Total time today about 65 minutes which includes 30 minute meeting with pt's family, assessing patient, reviewing films, etc. Admission and Anticipated Discharge Date Admission Date: January 11, 2020 Subjective patient sleeping upon my arrival. I called her name and she did wake up. she had a leftward gaze preference. I asked her to show me her left thumb and, after asking her 3 times, she finally did so. she was unable to speak or answer questions. tele overnight with rate controlled a.fib. I had a lengthy meeting with the pt's son and . they ultimately called a daughter who reported that Mrs Garcia had had a heart attack at some point in the past, perhaps 4-5 years prior. was hospitalized in [place] - had heart cath - no stents to her knowledge. reported that patient had had low energy for some time and would get tired with activity. she had been struggling with edema of late and was taking lasix. was supposed to be on lasix BID but was skipping the afternoon dose. they were not aware of a dx of CHF. she was compliant with her eliquis. patient very sedentary at home. we discussed code status. and son both agreed patient would NOT want CPR/shocks/intubation/mech ventilation. Review of Systems Review of Systems: Other (unable due to aphasia) Physical Exam Constitutional: + altered mental status (possible but cannot verify ) and + frail appearing; no acute distress right-sided neglect Eyes: PERRL ENMT: external ear and nose normal, oropharynx normal (?bite hardy tip of tongue vs irritation?) Respiratory: + tachypneic (mild) Auscultation: + rales (both bases, L>R) Cardiovascular: Rate/Rhythm: regular rate and + irregularly irregular Heart Sounds: normal S1, normal S2 and + murmur (2/6 RUSB - systolic) Vessels: + JVD, posterior tibial pulses present and dorsalis pedis pulses present Extremities: no edema Gastrointestinal (Abdomen): normal bowel sounds, soft, nontender, no hepatosplenomegaly Neurologic: + focal motor deficit (0/5 strength right leg and right arm; at least 4/5 strength LUE and LLE) Speech / Cognition: + expressive aphasia and + receptive aphasia subtle facial droop on right Psychiatric: Orientation: alert (but sleepy ) Results & Data Results & Data ([facility]) Vital Signs (Past 12 Hours) Vital Signs Temp Pulse Pulse Resp BP Pulse Ox Pulse Ox 01/12/20 11:50 97 01/12/20 11:13 36.9 C 61 20 161/84 H 96 01/12/20 08:00 41 L 96 01/12/20 07:55 36.5 C 54 L 19 133/59 L 97 01/12/20 03:50 36.5 C 67 18 157/77 H 96 Laboratory Results Laboratory Results - last 24 hr 01/11/20 01/11/20 01/12/20 10:33 14:35 07:16 WBC 10.18 RBC 4.56 Hgb 13.2 Hct 41.4 MCV 90.8 MCH 28.9 MCHC 31.9 L RDW Std Deviation 53.8 H RDW Coeff of Link 16.4 H Plt Count 204 MPV 9.9 Immature Gran % (Auto) 0.2 Neut % (Auto) 77.2 Lymph % (Auto) 10.1 [place] % (Auto) 12.1 Eos % (Auto) 0.3 Baso % (Auto) 0.1 Neut # (Auto) 7.86 H Lymph # (Auto) 1.03 L [place] # (Auto) 1.23 H Eos # (Auto) 0.03 Baso # (Auto) 0.01 Immature Gran # (Auto) 0.02 Sodium Potassium Chloride Carbon Dioxide Anion Gap BUN Creatinine Est Cr Clr Drug Dosing Est GFR ( Amer) Est GFR (Non-Af Amer) BUN/Creatinine Ratio Glucose Estimat Average Glucose 123 Hemoglobin A1c 5.9 H Calcium Triglycerides Cholesterol LDL Cholesterol, Calc VLDL Cholesterol, Calc HDL Cholesterol Cholesterol/HDL Ratio TSH Free T4 Urine Opiates Screen Neg Ur Methadone, Qual Neg Urine Barbiturates Neg Ur Phencyclidine (PCP) Neg U Amphetamin/Meth Scrn Neg MDMA (Ecstasy) Screen Neg U Benzodiazepines Scrn Neg Ur Cocaine Metabolite Neg U Marijuana (THC) Screen Neg 01/12/20 07:16 WBC RBC Hgb Hct MCV MCH MCHC RDW Std Deviation RDW Coeff of Link Plt Count MPV Immature Gran % (Auto) Neut % (Auto) Lymph % (Auto) [place] % (Auto) Eos % (Auto) Baso % (Auto) Neut # (Auto) Lymph # (Auto) [place] # (Auto) Eos # (Auto) Baso # (Auto) Immature Gran # (Auto) Sodium 142 Potassium 3.3 L Chloride 105 Carbon Dioxide 28 Anion Gap 9.0 BUN 27 H Creatinine 1.03 Est Cr Clr Drug Dosing 33.9 Est GFR ( Amer) 57.0 Est GFR (Non-Af Amer) 49.2 BUN/Creatinine Ratio 26.4 H Glucose 95 Estimat Average Glucose Hemoglobin A1c Calcium 8.7 Triglycerides 67 Cholesterol 88 LDL Cholesterol, Calc 45 VLDL Cholesterol, Calc 13 HDL Cholesterol 30 Cholesterol/HDL Ratio 3 TSH 0.263 L Free T4 1.46 Urine Opiates Screen Ur Methadone, Qual Urine Barbiturates Ur Phencyclidine (PCP) U Amphetamin/Meth Scrn MDMA (Ecstasy) Screen U Benzodiazepines Scrn Ur Cocaine Metabolite U Marijuana (THC) Screen PG Care Time/CCT Total # of Minutes Spent Total Time Spent with Patient: Total time spent is greater than 50% in coordination of care (as documented) at patient's floor/unit and/or counseling patient: Prolonged Care Time Prolonged Care Time: Yes Total Prolonged Care Time: 65 Coding Level of Care Code 54174 Subseq Hosp Care Lvl 3 (25 - SIGNIFICANT, SEPARATELY IDENTIFIABLE ) Diagnoses Acute cardioembolic stroke I63.9 Acute on chronic combined systolic and diastolic congestive heart failure I50.43 Ischemic cardiomyopathy I25.5 CAD (coronary artery disease) I25.10 Coronary Disease-Associated Artery/Lesion type: [place] artery [place] vs. transplanted heart: [place] heart Associated angina: without angina Hypokalemia E87.6 Atrial fibrillation I48.21 Atrial fibrillation type: permanent Chronic kidney disease, stage 3a N18.3 DVT prophylaxis Z29.9 Additional Codes Prolonged Care Time - Prolonged Care Time: Yes ([id number]) Time Spent (min) 65 (1) CAD (coronary artery disease) Coronary Disease-Associated Artery/Lesion type: [place] artery [place] vs. transplanted heart: [place] heart Associated angina: without angina Qualified Code(s): I25.10 - Atherosclerotic heart disease of [place] coronary artery without angina pectoris (2) Atrial fibrillation Atrial fibrillation type: permanent Qualified Code(s): I48.21 - Permanent atrial fibrillation
--- NOTE | 2020-01-12 12:23 | CT Scan Report ---
CT SCAN OF THE BRAIN WITHOUT IV CONTRAST CLINICAL HISTORY: Follow-up stroke. COMPARISON STUDY: CT and MRI of the brain dated 01/11/2020. TECHNIQUE: Unenhanced axial CT scan of the brain is performed from the vertex to the skull base. A do se lowering technique was utilized adhering to the principles of ALARA. CT DOSE: 537.48 mGy.cm FINDINGS: Brain parenchyma: There is extensive loss of angulo-white matter differentiation identified in the left frontotemporal region consistent with an evolving infarct. This also involves the left basal ganglia . There is effacement overlying cortical sulci. No midline shift is identified. There is no evidence of hemorrhage. Hyperdensity within the left MCA likely represents thrombus. There are age-related inv olutional changes noting moderate subcortical and periventricular microangiopathic change. No extra- axial fluid collection is seen. Mineralization is noted in the basal ganglia. Ventricles, sulci, cisterns: Prominent secondary to involutional change. Intracranial vasculature: There is atherosclerotic calcification of the cavernous carotid and vertebr al arteries. Calvarium: Unremarkable. Sinuses and mastoids: The visualized paranasal sinuses are clear. The mastoid air cells are well pneu matized. Orbits: The bony orbits are grossly intact. There are bilateral ocular lens implants. IMPRESSION: 1. There is a large evolving left frontotemporal infarct as above. 2. There is no midline shift or evidence of hemorrhage. ACT 112: Negative or not required by law. Electronically signed by: Conrado Smyth M.D. 01/12/2020 12:22 PM
--- NOTE | 2020-01-12 12:51 | XRay Report ---
SINGLE VIEW CHEST CLINICAL HISTORY: Congestive heart failure. FINDINGS: An AP, portable, upright chest radiograph is compared to study dated 01/11/2020. The examina tion is degraded by portable technique and patient rotation. The heart is markedly enlarged noting atherosclerotic calcification of the thoracic aorta. There is pulmonary vascular congestion with mild interstitial edema. Atelectasis is noted at the lung bases. Small pleural effusions are suspected. N o pneumothorax is seen. The skeletal structures are osteopenic. The bony thorax is grossly intact. IMPRESSION: Cardiomegaly with evidence of congestive failure. This is similar in appearance to yester day. ACT 112: Negative or not required by law. Electronically signed by: Conrado Smyth M.D. 01/12/2020 12:50 PM
[2020-01-12 12:58] LABS: Magnesium 1.9 mg/dl (1.8-2.4); Troponin I 0.189 ng/ml (0-0.045)
[2020-01-12] MEDS ORDERED: FUROSEMIDE 20 MG in SYRINGE 0 ML IV ONE (13:45)
[2020-01-12] MEDS: POTASSIUM CHLORIDE / WTR 10 MEQ/100 ML PLCT IV SCH ×2 (14:06→15:07)
[2020-01-12] MEDS: ASPIRIN 300 MG SUPP PR SCH (14:08)
[2020-01-13 07:20] LABS: Basophils # (auto) 0.02 K/uL (0-0.2); Basophils % (auto) 0.2 %; Eosinophils # (auto) 0.03 K/uL (0-0.5); Eosinophils % (auto) 0.3 %; Hematocrit (blood only) 42.6 % (37-47); Hemoglobin 13.5 g/dL (12.0-16.0); Immature Granulocytes # (auto) 0.01 K/uL (0.00-0.02); Immature Granulocytes % (auto) 0.1 %; Lymphocytes # (auto) 1.22 K/uL (1.2-3.4); Lymphocytes % (auto) 12.5 %; Mean Corpuscular Hemoglobin 28.7 pg (25-34); Mean Corpuscular Hgb Conc 31.7 g/dL (32-36); Mean Corpuscular Volume 90.6 fL (80-100); Mean Platelet Volume 10.3 fL (7.4-10.4); Monocytes # (auto) 1.07 K/uL (0.11-0.59); Neutrophils # (auto) 7.38 K/uL (1.4-6.5); Neutrophils % (auto) 75.9 %; Platelet Count 223 K/uL (130-400); RDW Coefficient of Variation 16.2 % (11.5-14.5); RDW Standard Deviation 53.4 fL (36.4-46.3); White Blood Count 9.73 K/uL (4.8-10.8)
[2020-01-13 07:57] LABS: BUN Creatinine Ratio 25.4 (10-20); Calcium 9.1 mg/dl (8.5-10.1); Creatinine Clr Calc Pharmacy 33.5 ml/min; Est GFR (African American) 56.3; Est GFR (Non-African American) 48.6; Potassium 3.4 mmol/L (3.5-5.1)
[2020-01-13] MEDS: HEPARIN SOD 5,000 UNIT/0.5 ML VIAL SQ SCH ×2 (08:33→20:14)
[2020-01-13] MEDS: POTASSIUM CHLORIDE / WTR 10 MEQ/100 ML PLCT IV SCH ×2 (08:37→09:36)
[2020-01-13] MEDS ORDERED: FUROSEMIDE 20 MG in SYRINGE 0 ML IV ONE (08:45)
--- NOTE | 2020-01-13 10:50 | Hospitalist Progress Note ---
Date of Service January 13, 2020 Assessment & Plan (1) Acute cardioembolic stroke: significant left-sided MCA territory stroke with visible thrombus within the left MCA in this right-handed 84yo female. etiology -- likely cardioembolic in origin. her significantly depressed LV function along with chronic a.fib - despite use of eliquis - likely caused her stroke. she is more somnolent today with Cheye-Zimmerman respirations and apnea. repeat CT head today with worsening edema but no signs of herniation. cont NPO status. PT/OT/speech evals appreciated. heparin SC for DVT proph. ultimately will need to restart anticoagulation - likely coumadin rather than novel agent. lipids are controlled but would ultimately still need statin given her CAD history and now the stroke. HOB at 45 degrees. Aspiration and seizure precautions. Allow permissive HTN. Asa 300mg AR daily for now for secondary prevention. spoke with neurology - appreciate their assistance. (2) Js-Zimmerman respiration: 2nd to severe stroke with cerebral edema. CHF can contribute but much less likely. (3) Acute on chronic combined systolic and diastolic congestive heart failure: Give lasix 20mg IV x 1 again today with K supplementation. She will ultimately need BB and JUAN/ARB. Echo reviewed and findings noted. I have requested records from [facility] regarding prior testing (heart cath, etc). (4) Ischemic cardiomyopathy: Echo shows akinetic inferior wall and significant hypokinesis of other LV regions. This is c/w ischemic cardiomyopathy. By the daughter's report she had an NSTEMI in the past. Was hospitalized in [place] - and perhaps [facility] - in the past for cardiac issues but details are limited. Await records from [place]. (5) CAD (coronary artery disease): Will need asa, BB, statin. Await records. (6) Hypokalemia: Replace with IV KCL. repeat k in am. mag level wnl. (7) Atrial fibrillation: Rates controlled. Will ultimately need metoprolol and resumption of anticoagulation. (8) Chronic kidney disease, stage 3a: Cr stable. BMP in am. (9) DVT prophylaxis: heparin SC updated by phone today prognosis is guarded she remains DNR consider enteral feedings starting tomorrow Admission and Anticipated Discharge Date Admission Date: January 11, 2020 Subjective patient opened eyes to her name being called. she otherwise did not follow commands. she quickly closed her eyes and slept for the remainder of her visit. the patient had notable Js-Zimmerman respirations vs central apnea with pauses in breathing lasting at least 10 seconds. tele overnight - rate-controlled a.fib. assessed by speech again - not fit to swallow due to mental status. Review of Systems Review of Systems: Unobtainable due to cognitive status and Unobtainable due to reduced consciousness Physical Exam Constitutional: + frail appearing and + lethargic; no acute distress notable Js-Zimmerman respirations vs central apnea Eyes: PERRL ENMT: external ear and nose normal, oropharynx normal (?bite hardy tip of tongue vs irritation?) Respiratory: Auscultation: + rales (both bases, L>R) irregular breathing pattern as noted above Cardiovascular: Rate/Rhythm: regular rate and + irregularly irregular Heart Sounds: normal S1, normal S2 and + murmur (2/6 RUSB - systolic) Vessels: + JVD, posterior tibial pulses present and dorsalis pedis pulses present Extremities: no edema Gastrointestinal (Abdomen): normal bowel sounds, soft, nontender, no hepatos plenomegaly Neurologic: + focal motor deficit (flaccid RUE/RLE; right facial droop) Speech / Cognition: + expressive aphasia and + receptive aphasia Results & Data Results & Data ([facility]) Vital Signs (Past 12 Hours) Vital Signs Temp Pulse Pulse Resp BP Pulse Ox 01/13/20 10:00 68 01/13/20 07:00 36.9 C 78 21 167/110 H 96 01/13/20 03:15 36.5 C 76 18 161/88 H 95 01/12/20 23:21 36.5 C 58 L 16 146/63 H 100 01/12/20 22:54 53 L Laboratory Results Laboratory Results - last 24 hr 01/12/20 01/13/20 01/13/20 07:16 06:43 06:43 WBC 9.73 RBC 4.70 Hgb 13.5 Hct 42.6 MCV 90.6 MCH 28.7 MCHC 31.7 L RDW Std Deviation 53.4 H RDW Coeff of Lnik 16.2 H Plt Count 223 MPV 10.3 Immature Gran % (Auto) 0.1 Neut % (Auto) 75.9 Lymph % (Auto) 12.5 George % (Auto) 11.0 Eos % (Auto) 0.3 Baso % (Auto) 0.2 Neut # (Auto) 7.38 H Lymph # (Auto) 1.22 [place] # (Auto) 1.07 H Eos # (Auto) 0.03 Baso # (Auto) 0.02 Immature Gran # (Auto) 0.01 Sodium 142 Potassium 3.4 L Chloride 104 Carbon Dioxide 29 Anion Gap 9.0 BUN 26 H Creatinine 1.04 Est Cr Clr Drug Dosing 33.5 Est GFR ( Amer) 56.3 Est GFR (Non-Af Amer) 48.6 BUN/Creatinine Ratio 25.4 H Glucose 104 H Calcium 9.1 Magnesium 1.9 2.0 Troponin I 0.189 H* PG Care Time/CCT Total # of Minutes Spent Total Time Spent with Patient: Total time spent is greater than 50% in coordination of care (as documented) at patient's floor/unit and/or counseling patient: Coding Level of Care Code 61984 Subseq Hosp Care Lvl 3 Diagnoses Acute cardioembolic stroke I63.9 Js-Zimmerman respiration R06.3 Acute on chronic combined systolic and diastolic congestive heart failure I50.43 Ischemic cardiomyopathy I25.5 CAD (coronary artery disease) I25.10 Associated angina: without angina Coronary Disease-Associated Artery/Lesion type: [place] artery [place] vs. transplanted heart: [place] heart Hypokalemia E87.6 Atrial fibrillation I48.21 Atrial fibrillation type: permanent Chronic kidney disease, stage 3a N18.3 DVT prophylaxis Z29.9 (1) CAD (coronary artery disease) Associated angina: without angina Coronary Disease-Associated Artery/Lesion type: [place] artery [place] vs. transplanted heart: [place] heart Qualified Code(s): I25.10 - Atherosclerotic heart disease of [place] coronary artery without angina pectoris (2) Atrial fibrillation Atrial fibrillation type: permanent Qualified Code(s): I48.21 - Permanent atrial fibrillation
--- NOTE | 2020-01-13 11:42 | Neurology Progress Note ---
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 after acute onset of R-sided weakness and aphasia. Symptom localization: left MCA/ICA terminus Stroke mechanism: cardioembolic Stroke WorkUp: - CT head: shows a large hypodensity in the left MCA territory, ASPECT score 5. 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, and mild bilateral ICA stenosis with diffuse mild intra- and extracranial atherosclerosis - MRI brain: subacute infarct in the left predominantly inferior division of the MCA territory (affecting the left putamen and anterior temporal lobe), as well as a small area of subacute infarct in the left frontal lobe in the NIGEL distribution, mild to moderate SVID, mild generalized atrophy - TTE: EF 25-30%, inferior wall is akinetic, mild LVH, LV mildly dilated, remainder of ventricle is severely hypokinetic, no LV thrombus noted, severe TR, elevated V systolic pressure, grade III diastolic dysfunction with marked CHF, moderate aortic stenosis - Telemetry: Afib - A1c: 5.9 - FLP: 45 - Troponin, TSH: 0.177, 0.263 with normal free T4 - UDS negative Stroke Management: - Continuous cardiac monitoring - Vitals, Neurochecks, NIHSS per unit routine - BP parameters: SBP CAP 180, ok to restart home anti-hypertensives for BP CAP, goal normotension over the next 3-4 days - Repeat CTH if significant mental status change/Lucrecia's response/pupil asymmetry noted while admitted - Patient is on swell watch for next 1-3 days (monitor for [facility]'s response (bradycardia/HTN) and pupil asymmetry suggesting herniation); swell watch ends 01/16/20 - Consult speech, PT, OT for supportive management - Will pediatric genetic counselor concerning stroke education, smoking cessation, healthy diet, physical activity, weight loss - Follow up with PCP for assistance with outpatient goals (BP <130/80, LDL <70, A1c <7) - Follow up in neurology clinic in 6-8 weeks if family opts for likely long-term care option Secondary Stroke Prevention: - Antiplatelet: ASA 300mg IN daily - Anticoagulation: hold home eliquis. Plan to repeat CTH on 01/16/20 and if no significant hemorrhagic transformation (PH1/PH2 not present), would start warfarin given moderate aortic stenosis noted on echo. - Statin: Atorvastatin 40mg daily (ok to hold pending placement of NGT) HTN: - BP parameters, as above FEN/GI: - Diet: NPO until cleared by Speech evaluation. Recommend early NGT to give meds/nutrition. - Monitor lytes and replete PRN Glucose Control: - Sliding scale insulin and accuchecks per primary team to avoid hyperglycemia Thank you for this interesting consult. Plan of care was discussed with primary team. Please call with any questions. Admission and Anticipated Discharge Date Admission Date: January 11, 2020 Subjective NAEs overnight. Again opens eyes to voice and can move LUE somewhat to command, otherwise no change from yesterday. Review of Systems Review of Systems: Other (unable due to aphasia) Results & Data ([facility]) Vital Signs (Past 12 Hours) Vital Signs Temp Pulse Pulse Resp BP Pulse Ox 01/13/20 10:00 68 01/13/20 07:00 36.9 C 78 21 167/110 H 96 01/13/20 03:15 36.5 C 76 18 161/88 H 95 Exam (Neuro) Physical Exam: General Exam: GEN: NAD, lying down in examination bed. HEENT: No conjunctival injection, no rhinorrhea. CV: RRR on monitor, no significant edema. PULM: Nonlabored respirations on 2L NC Neuro Exam: MS: Eyes to voice. Unable to answer orientation questions or further mental status questions given aphasia/mental status. No clear neglect. CN: R VF cut, + blink to threat in left hemifield only. Normal fundoscopic exam. PERRLA OU. Left gaze preference, unable to overcome with dolls eyes maneuver. + R FP. Unable to assess hearing, uvula, tongue or SCMs 2/2 mental status. MOTOR: Normal bulk, flaccid RUE/RLE. Spontaneous movements observed in LUE/LLE, able to hold LUE off bed with slow drift to bed. RUE/RLE flaccid, no spontaneous movements observed. REFLEXES: 2+ at R biceps, triceps, brachioradialis, 1+ at L biceps, triceps, brachioradialis, absent patella, and absent Achilles bilaterally. Flexor plantar responses in left toe, mute in right toe. SENSORY: Grimaces and withdraws to noxious stimuli in LUE/LLE, no grimace or withdrawal noted in RUE/RLE. COORDINATION: unable to assess 2/2 mental status GAIT: Deferred due to physical status. NIH STROKE SCALE 1A. Level of Consciousness (0-3) = 0 1B. LOC Questions (0-2) = 2 1C. LOC Commands (0-2) = 2 2. Best Horizontal Gaze (0-2) = 2 3. Visual Watson (0-3) = 2 4. Facial Palsy (0-3) = 1 5. Motor Arm Right (0-4) = 3 Left (0-4) = 0 6. Motor Leg Right (0-4) = 4 Left (0-4) = 1 7. Limb Ataxia (0-2) = UN 8. Sensory (0-2) = 1 9. Best Language (0-3) = 3 10. Dysarthria (0-2) = 2 11. Extinction and Inattention (0-2) = 0 NIHSS TOTAL = 23UN PG Care Time/CCT Total # of Minutes Spent Total Time Spent with Patient: Total time spent is greater than 50% in coordination of care (as documented) at patient's floor/unit and/or counseling patient: Coding Level of Care Code 00357 Subseq Hosp Care Lvl 3 Diagnoses Atrial fibrillation I48.21 Atrial fibrillation type: permanent Acute ischemic left MCA stroke I63.512 (1) Atrial fibrillation Atrial fibrillation type: permanent Qualified Code(s): I48.21 - Permanent atrial fibrillation
--- NOTE | 2020-01-13 11:51 | CT Scan Report ---
CT head/brain wo con CLINICAL HISTORY: Acute stroke. Evaluate for increased intracranial pressure. COMPARISON STUDY: 01/12/2020 TECHNIQUE: Axial CT of the brain is performed from the vertex to the skull base. IV contrast was not administered for this examination. A dose lowering technique was utilized adhering to the principles of ALARA. CT DOSE: 537.48 mGy.cm FINDINGS: There is a large subacute infarct involving the left middle cerebral artery distribution. There is ed kalia with effacement of the left hemispheric cortical sulci. There is mild mass effect on the anterior horn left lateral ventricle. There is no significant midline shift. There is no acute hemorrhage. There are patchy white matter hypodensities likely on a small vessel basis. There is no evidence of pathologic ventricular dilatation. There is no evidence of acute sinusitis IMPRESSION: 1. Large subacute infarct in the left MCA distribution. There is left hemispheric edema with a slight increase in mass effect with increasing deformity of the anterior horn left lateral ventricle. No si gnificant midline shift. No evidence of acute hemorrhage. ACT 112: Negative or not required by law. Electronically signed by: Alfa Chahal M.D. 01/13/2020 11:50 AM
[2020-01-13] MEDS: ASPIRIN 300 MG SUPP PR SCH (14:24)
[2020-01-14 06:38] LABS: BUN Creatinine Ratio 29.8 (10-20); Creatinine Clr Calc Pharmacy 35.1 ml/min; Est GFR (African American) 60.5; Est GFR (Non-African American) 52.2; Potassium 3.7 mmol/L (3.5-5.1)
[2020-01-14] MEDS: HEPARIN SOD 5,000 UNIT/0.5 ML VIAL SQ SCH ×2 (07:34→20:21)
--- NOTE | 2020-01-14 10:53 | Hospitalist Progress Note ---
Date of Service January 14, 2020 Assessment & Plan (1) Acute cardioembolic stroke: significant left-sided MCA territory stroke with visible thrombus within the left MCA in this right-handed 84yo female. etiology -- likely cardioembolic in origin. her significantly depressed LV function along with chronic a.fib - despite use of eliquis - likely caused her stroke. continues with Js-Zimmerman respirations and apnea along w/ lethargy. pupils pinpoint today - change from yesterday. This is concerning for edema affecting the lelia. cont NPO status. PT/OT/speech evals appreciated. heparin SC for DVT proph. ultimately will need to restart anticoagulation - likely coumadin rather than novel agent - if she survives this CVA. lipids are controlled but would ultimately still need statin given her CAD history and now the stroke. HOB at 45 degrees. Aspiration and seizure precautions. BP is acceptable at this time. Asa 300mg AL daily for secondary prevention. neurology - appreciate their assistance. prognosis very poor/guarded. (2) Js-Zimmerman respiration: 2nd to severe stroke with cerebral edema. CHF can contribute but unlikely cause. (3) Acute on chronic combined systolic and diastolic congestive heart failure: Still volume overloaded but improved. Give lasix 20mg IV x 1 again today with K supplementation. She will ultimately need BB and JUAN/ARB if she survives her acute stroke. EF 25-30%. I have requested records from [facility] regarding prior testing (heart cath, etc). (4) Ischemic cardiomyopathy: Echo shows akinetic inferior wall and significant hypokinesis of other LV regions. This is c/w ischemic cardiomyopathy. By the daughter's report she had an NSTEMI in the past. Was hospitalized in [place] - or perhaps [facility] - in the past for cardiac issues but details are limited. Await records from [place]. (5) CAD (coronary artery disease): Will need asa, BB, statin. Await records. (6) Hypokalemia: improved. give KCL supplementation when lasix is given. (7) Atrial fibrillation: Rates controlled. Will ultimately need beta melida and resumption of anticoagulation. (8) Chronic kidney disease, stage 3a: Cr stable. BMP in am. (9) DVT prophylaxis: heparin SC updated 01/11 and 01/12 prognosis is guarded/very poor she remains DNR consider enteral feedings but uncertain if safe to place NG tube in midst of apnea/Js-Zimmerman respirations Admission and Anticipated Discharge Date Admission Date: January 11, 2020 Subjective tele - a.fib, rates <100 patient briefly opened eyes to her name being called but quickly closed them lethargic with Js-Zimmerman respirations continuing unable to follow any commands Review of Systems Review of Systems: Unobtainable due to cognitive status and Unobtainable due to reduced consciousness Physical Exam Constitutional: + frail appearing and + lethargic; no acute distress Eyes: + pinpoint pupils (but reactive) ENMT: external ear and nose normal, oropharynx normal (?bite hardy tip of tongue vs irritation?) Respiratory: + tachypneic (Js-Strokes respirations ) Auscultation: + rales (both bases, L>R) Cardiovascular: Rate/Rhythm: regular rate and + irregularly irregular Heart Sounds: normal S1, normal S2 and + murmur (2/6 RUSB - systolic; 3/6 systolic LLSB/axillae) Vessels: + JVD (1/2 way up neck ), posterior tibial pulses present and dorsalis pedis pulses present Extremities: no edema Gastrointestinal (Abdomen): normal bowel sounds, soft, nontender, no hepatosplenomegaly Neurologic: + focal motor deficit (flaccid RUE/RLE; right facial droop) Speech / Cognition: + expressive aphasia and + receptive aphasia +babinski's b/l Psychiatric: Orientation: + not alert (lethargic ) and + not oriented x 3 Results & Data Results & Data ([facility]) Vital Signs (Past 12 Hours) Vital Signs Temp Pulse Pulse Resp BP BP Pulse Ox 01/14/20 08:00 74 01/14/20 07:32 36.8 C 65 17 162/85 H 99 01/14/20 03:26 36.4 C L 76 19 145/77 H 97 01/14/20 00:28 74 01/13/20 23:22 36.6 C 77 17 151/74 H 92 Laboratory Results Laboratory Results - last 24 hr 01/14/20 05:36 Sodium 145 Potassium 3.7 Chloride 106 Carbon Dioxide 29 Anion Gap 10.0 BUN 29 H Creatinine 0.98 Est Cr Clr Drug Dosing 35.1 Est GFR ( Amer) 60.5 Est GFR (Non-Af Amer) 52.2 BUN/Creatinine Ratio 29.8 H Glucose 111 H Calcium 9.0 PG Care Time/CCT Total # of Minutes Spent Total Time Spent with Patient: Total time spent is greater than 50% in coordination of care (as documented) at patient's floor/unit and/or counseling patient: Coding Level of Care Code 07451 Subseq Hosp Care Lvl 2 Diagnoses Acute cardioembolic stroke I63.9 Js-Zimmerman respiration R06.3 Acute on chronic combined systolic and diastolic congestive heart failure I50.43 Ischemic cardiomyopathy I25.5 CAD (coronary artery disease) I25.10 Coronary Disease-Associated Artery/Lesion type: [place] artery [place] vs. transplanted heart: venetie heart Associated angina: without angina Hypokalemia E87.6 Atrial fibrillation I48.21 Atrial fibrillation type: permanent Chronic kidney disease, stage 3a N18.3 DVT prophylaxis Z29.9 (1) CAD (coronary artery disease) Coronary Disease-Associated Artery/Lesion type: [place] artery [place] vs. transplanted heart: venetie heart Associated angina: without angina Qualified Code(s): I25.10 - Atherosclerotic heart disease of venet[place] coronary artery without angina pectoris (2) Atrial fibrillation Atrial fibrillation type: permanent Qualified Code(s): I48.21 - Permanent atrial fibrillation
[2020-01-14] MEDS ORDERED: POTASSIUM CHLORIDE / WTR 10 MEQ/100 ML PLCT IV ONE (11:00)
[2020-01-14] MEDS ORDERED: FUROSEMIDE 20 MG in SYRINGE 0 ML IV ONE (11:00)
[2020-01-14] MEDS: ASPIRIN 300 MG SUPP PR SCH (13:42)
--- NOTE | 2020-01-14 16:17 | Neurology Progress Note ---
Date of Service January 14, 2020 Assessment & Plan (1) Acute ischemic left MCA stroke: Acute large left hemispheric ischemic infarct due to thrombosis of the left middle cerebral artery with resultant global aphasia and right hemiplegia. An interval CT of the head completed yesterday suggested development of an element of associated edema and effacement of the left lateral ventricle, no hemorrhagic transformation. No obvious compression on the brainstem. Due to patient's increasing lethargy and irregular breathing pattern that has been noted at times, I suspect there has been some further interval edema in the previously identified large left hemispheric infarct. However, I do not suspect a herniation syndrome at this point in time. Patient should have a repeat CT of the head completed to reassess for significant interval change as above. Prognosis is poor, however, in light of the large size of this patient's ischemic infarct within her dominant cerebral hemisphere, further confounded by her advanced age. Case discussed with Dr. Santos earlier today. Admission and Anticipated Discharge Date Admission Date: January 11, 2020 Subjective Follow-up for stroke I was asked to reassess this patient this morning regarding pinpoint pupils and altered mental status. The patient was admitted to the [facility] for an acute ischemic left MCA territory infarct due to thrombus of the left middle cerebral artery. She has been aphasic and has an associated right hemiparesis. She has exhibited some regular breathing pattern/Js-Zimmerman respirations with apneic pauses and increased lethargy per housestaff physician recently. Patient has been n.p.o. I reviewed the patient's most recent CT of the head completed January 13, 2020 which revealed a large subacute infarct within the left MCA distribution. There is associated edema and effacement of the left lateral ventricle, no midline shift, no hemorrhagic transformation. I reviewed the imag es as well as the radiologist's interpretation of this test. The patient was a bit more alert when I assessed her this morning, her eyes were open and she was regarding others in her room including her daughter and son-in-law, but remained nonverbal, see examination below for further details. Review of Systems Review of Systems: Unobtainable due to cognitive status Results & Data ([facility]) Vital Signs (Past 12 Hours) Vital Signs Temp Pulse Pulse Resp BP BP Pulse Ox 01/14/20 15:20 36.8 C 70 20 148/96 H 95 01/14/20 11:31 36.6 C 83 21 163/94 H 97 08/31/20 08:00 74 01/14/20 07:32 36.8 C 65 17 162/85 H 99 Laboratory Results WBC 9.73, hemoglobin 13.5, hematocrit 42.6, platelet count 223, sodium 145, potassium 3.7, BUN 29, creatinine 0.98 Diagnostic Findings In addition to the CT of the head in addition to the CT of the head completed yesterday which was reviewed and as described above, I reviewed this patient's brain MRI that was completed January 11, 2020. The study reveals a moderate to large sized acute to subacute infarct within the left MCA territory with evidence of thrombus within the left middle cerebral artery, no MRI evidence of hemorrhage. I reviewed the images as well as the radiologist interpretation of this test as well. An echocardiogram completed January 12, 2020 reveals a reduced ejection fraction, 25 to 30% with inferior wall akinesis, the left atrium is severely dilated, the right atrium is severely dilated Exam (Neuro) Constitutional: well developed; no acute distress Neurologic: Oriented to:: negative Person, Place and Time Language: negative Naming Objects and Repeating Phrases Speech Aphasia: Aphasia and Broca's Aphasia Cranial Nerves: Normal II and III, IV, (Pupils small, equal, round and reactive to light.); Abnorm VII (Flattening of the right nasolabial fold noted) Motor Strength: Hemiplegia Laterality: Right Spasticity: None Muscle Bulk/Involuntary Movements: No Involuntary Movements Coding Level of Care Code 14335 Subseq Hosp Care Lvl 2 Diagnoses Acute ischemic left MCA stroke I63.512
[2020-01-15 05:43] LABS: Hematocrit (blood only) 48.4 % (37-47); Hemoglobin 15.2 g/dL (12.0-16.0); Mean Corpuscular Hemoglobin 29.5 pg (25-34); Mean Corpuscular Hgb Conc 31.4 g/dL (32-36); Mean Platelet Volume 10.1 fL (7.4-10.4); Platelet Count 212 K/uL (130-400); RDW Coefficient of Variation 16.3 % (11.5-14.5); Red Blood Count 5.15 M/uL (4.2-5.4); White Blood Count 9.57 K/uL (4.8-10.8)
[2020-01-15 06:08] LABS: BUN Creatinine Ratio 33.5 (10-20); Calcium 9.4 mg/dl (8.5-10.1); Creatinine Clr Calc Pharmacy 35.9 ml/min; Est GFR (African American) 62.1; Est GFR (Non-African American) 53.6; Magnesium 2.2 mg/dl (1.8-2.4); Potassium 3.6 mmol/L (3.5-5.1)
[2020-01-15] MEDS: HEPARIN SOD 5,000 UNIT/0.5 ML VIAL SQ SCH ×2 (07:19→19:49)
--- NOTE | 2020-01-15 08:53 | CT Scan Report ---
CT head/brain wo con CLINICAL HISTORY: 84 years-old Female with Large L MCA territory CVA, edema. Follow-up study in a pa tient with acute left MCA stroke. TECHNIQUE: Multiple axial CT images of the head were obtained without contrast. A dose lowering tech nique was utilized adhering to the principles of ALARA. CT DOSE: 537.48 mGy.cm COMPARISON: None. FINDINGS: Large subacute infarct of the left MCA territory redemonstrated. Expected evolving cytotoxic edema re sults in associated local gyral expansion with sulcal effacement. There is partial effacement of the frontal horn left lateral ventricle. The dimensions of the infarct measure up to at least 7.6 cm in g reatest dimension. This results in 2 mm rightward midline shift. Age-related involutional changes. Se nescent calcifications of the lentiform nuclei. Patchy white matter hypodensities suggest chronic janette rovascular ischemic disease. No acute intracranial hemorrhage or hydrocephalus. No intracranial mass. Cerebral vascular calcifications. No acute calvarial fracture. The mastoid air cells are clear. Soft tissues are unremarkable. IMPRESSION: 1. Evolving large subacute infarct of the left MCA territory redemonstrated. Cytotoxic edema is again noted resulting in associated gyral expansion with sulcal effacement. Partial effacement of the fron shona horn left lateral ventricle is also noted with resultant 2 mm rightward midline shift. 2. No acute intracranial hemorrhage. ACT 112: Negative or not required by law. The above report was generated using voice recognition software. It may contain grammatical, syntax o r spelling errors. Electronically signed by: Onesimo Zelaya M.D. 01/15/2020 8:51 AM
--- NOTE | 2020-01-15 09:38 | Hospitalist Progress Note ---
Date of Service January 15, 2020 Assessment & Plan (1) Acute cardioembolic stroke: significant left-sided MCA territory stroke with visible thrombus within the left MCA. etiology -- likely cardioembolic in origin. her significantly depressed LV function along with chronic a.fib - despite use of eliquis - likely caused her stroke. continues with Js-Zimmerman respirations. CT head today with worsening edema - no herniation seen. pupils very small suggesting potential for increased pressure on the lelia. cont NPO status. PT/OT/speech evals appreciated. heparin SC for DVT proph. ultimately will need to restart anticoagulation - likely coumadin rather than novel agent - if she survives this CVA. lipids are controlled but would ultimately still need statin given her CAD history and now the stroke. HOB at 45 degrees. Aspiration and seizure precautions. BP remains acceptable w/o meds. Asa 300mg [place] daily for secondary prevention. neurology - appreciate their assistance. prognosis very poor. palliative care consult requested. I had long discussion with today. He feels that his would NOT want to live in this state and would NOT want PEG. She remains DNR. (2) Js-Zimmerman respiration: 2nd to severe stroke with cerebral edema. CHF can contribute but unlikely cause. (3) Acute on chronic combined systolic and diastolic congestive heart failure: Appears mildly intravascularly volume contracted. Na 147 today. NO lasix today. She will ultimately need BB and JUAN/ARB if she survives her acute stroke. EF 25-30%. I have requested records from [facility] - they arrived. Records allude to CHF but no echo or other cardiac testing found. (4) Ischemic cardiomyopathy: Echo shows akinetic inferior wall and significant hypokinesis of other LV regions. This is c/w ischemic cardiomyopathy. By the daughter's report she had an NSTEMI in the past. Was hospitalized in [place] - or perhaps [facility] - in the past for cardiac issues but details are limited. (5) CAD (coronary artery disease): Will need asa, BB, statin. Apparently has had NSTEMI in past and ?cath but no stents. (6) Hypokalemia: improved/resolved. (7) Atrial fibrillation: Rates controlled. Will ultimately need beta melida and resumption of anticoagulation. (8) Chronic kidney disease, stage 3a: Cr stable. BMP in am. (9) Hypernatremia: give 1 L of 1/2 NS and repeat BMP in am. (10) DVT prophylaxis: heparin SC updated 01/11 and 01/12 and today prognosis is guarded/very poor she remains DNR unable to place coresafe for enteral feedings in midst of apnea/Js-Zimmerman respirations and severe dysphagia formal palliiative care consult requested Admission and Anticipated Discharge Date Admission Date: January 11, 2020 Subjective patient moving her left arm and leg spontaneously during the visit. however, right arm/leg cont to be flaccid. she opens eyes briefly to her name being called. unable to speak or answer questions. quickly falls back asleep, and Cheye-Zimmerman respirations resume as soon as she falls asleep. a.fib remains rate controlled w/o medications. Review of Systems Review of Systems: Unobtainable due to cognitive status and Unobtainable due to reduced consciousness Physical Exam Constitutional: + frail appearing and + lethargic; no acute distress Eyes: + pinpoint pupils (but reactive) ENMT: Mouth: + dry oral mucous membranes Respiratory: + tachypneic (Js-Strokes respirations ) Auscultation: + rales (both bases, L>R) Cardiovascular: Rate/Rhythm: regular rate and + irregularly irregular Heart Sounds: normal S1, normal S2 and + murmur (2/6 RUSB - systolic; 3/6 systolic LLSB/axillae) Vessels: + JVD (Minimal today), posterior tibial pulses present and dorsalis pedis pulses present Extremities: + edema (Mild, RUE - dependent ) Gastrointestinal (Abdomen): normal bowel sounds, soft, nontender, no hepatosplenomegaly Neurologic: + focal motor deficit (flaccid RUE/RLE; right facial droop) Speech / Cognition: + expressive aphasia and + receptive aphasia spontaneously moves left arm and leg Psychiatric: Orientation: + not alert (lethargic ) and + not oriented x 3 Results & Data Results & Data ([facility]) Vital Signs (Past 12 Hours) Vital Signs Temp Pulse Pulse Resp BP Pulse Ox 01/15/20 07:40 36.7 C 79 20 158/95 H 98 01/15/20 02:51 36.5 C 57 L 18 129/63 96 01/14/20 23:25 36.4 C L 85 19 166/90 H 96 01/14/20 23:00 85 Laboratory Results Laboratory Results - last 24 hr 01/15/20 01/15/20 05:20 05:20 WBC 9.57 RBC 5.15 Hgb 15.2 Hct 48.4 H MCV 94.0 MCH 29.5 MCHC 31.4 L RDW Std Deviation 56.0 H RDW Coeff of Link 16.3 H Plt Count 212 MPV 10.1 Sodium 147 H Potassium 3.6 Chloride 108 H Carbon Dioxide 29 Anion Gap 10.0 BUN 32 H Creatinine 0.96 Est Cr Clr Drug Dosing 35.9 Est GFR ( Amer) 62.1 Est GFR (Non-Af Amer) 53.6 BUN/Creatinine Ratio 33.5 H Glucose 104 H Calcium 9.4 Magnesium 2.2 PG Care Time/CCT Total # of Minutes Spent Total Time Spent with Patient: Total time spent is greater than 50% in coordination of care (as documented) at patient's floor/unit and/or counseling patient: Coding Level of Care Code 58674 Subseq Hosp Care Lvl 3 Diagnoses Acute cardioembolic stroke I63.9 Js-Zimmerman respiration R06.3 Acute on chronic combined systolic and diastolic congestive heart failure I50.43 Ischemic cardiomyopathy I25.5 CAD (coronary artery disease) I25.10 Associated angina: without angina Coronary Disease-Associated Artery/Lesion type: [place] artery [place] vs. transplanted heart: craig heart Hypokalemia E87.6 Atrial fibrillation I48.21 Atrial fibrillation type: permanent Chronic kidney disease, stage 3a N18.3 Hypernatremia E87.0 DVT prophylaxis Z29.9 (1) CAD (coronary artery disease) Associated angina: without angina Coronary Disease-Associated Artery/Lesion type: [place] artery [place] vs. transplanted heart: craig heart Qualified Code(s): I25.10 - Atherosclerotic heart disease of [place]ig coronary artery without angina pectoris (2) Atrial fibrillation Atrial fibrillation type: permanent Qualified Code(s): I48.21 - Permanent atrial fibrillation
[2020-01-15] MEDS ORDERED: SODIUM CHLORIDE 0.45 % 1,000 ML IV SCH (09:45)
[2020-01-15] MEDS: ASPIRIN 300 MG SUPP PR SCH (12:45)
--- NOTE | 2020-01-15 16:05 | Palliative Care Consultation ---
Date of Consultation January 15, 2020 Assessment & Plan (1) Goals of care, counseling/discussion: Patient is an 84-year-old female who had prior to this admission been independent, she has a history of A. fib-on Eliquis, hypertension, HLD, CHF. She had a history of a small bowel obstruction with lysis of adhesions in April 2019. On 01/10 patient was found by her to be unresponsive-she was brought to [facility] where she was found to have a large left MCA CVA. CTA showed occlusion of left MCA at point of origin-likely embolic. Patient's CODE STATUS is currently DNR/DNI. -Met with patient's daughter, Myrna and [id number], Marina-they report that yesterday patient did open her eyes and her gaze appeared to be focused. Patient is not responding to voice or touch today, did not respond to family members either. -Patient currently on IV fluids, unable to place NG tube as patient unable to swallow -Discussed with family at bedside options as far as taking patient home with hospice care, placement in a facility under hospice or placement of a surgical feeding tube. -Family stated they did not want a surgical feeding tube, would like to speak to other family members regarding returning home under hospice care-patient's would need help with her care at home. -Discussed IV fluids-can continue them at this time until they become harmful- i.e.: Start having rales or edema -Prognosis without food or fluids is approximately 14 days. -Will follow-up with family regarding plan of care-family had initially wanted to wait till to make a decision, hoping that patient will have some recovery. - PPS 10% (2) Acute cardioembolic stroke: (3) Atrial fibrillation: Atrial fibrillation type: unspecified Qualified Code(s): I48.91 - Unspecified atrial fibrillation (4) Hypoxic: History of Present Illness Reason for Consultation: Address goals of care and assist family with medical decision making Requesting Physician: Dr Santos Attending Physician: Temo Santos History of Present Illness Patient is an 84-year-old female who had prior to this admission been independent, she has a history of A. fib-on Eliquis, hypertension, HLD, CHF. She had a history of a small bowel obstruction with lysis of adhesions in April 2019. On 01/10 patient was found by her to be unresponsive-she was brought to [facility] where she was found to have a large left MCA CVA. CTA showed occlusion of left MCA at point of origin-likely embolic. Patient's CODE STATUS is currently DNR/DNI. -Met with patient's daughter, Myrna and [id number], Marina-they report that yesterday patient did open her eyes and her gaze appeared to be focused. Patient is not responding to voice or touch today, did not respond to family members either. -Patient currently on IV fluids, unable to place NG tube as patient unable to swallow -Discussed with family at bedside options as far as taking patient home with hospice care, placement in a facility under hospice or placement of a surgical feeding tube. -Family stated they did not want a surgical feeding tube, would like to speak to other family members regarding returning home under hospice care-patient's would need help with her care at home. -Discussed IV fluids-can continue them at this time until they become harmful- i.e.: Start having rales or edema -Prognosis without food or fluids is approximately 14 days. -Will follow-up with family regarding plan of care-family had initially wanted to wait till to make a decision, hoping that patient will have some recovery. - PPS 10% Allergies Allergy/AdvReac Type Severity Reaction Status Date / Time No Known Allergies Allergy Unverified 01/11/20 12:11 Patient History Medical History Small bowel obstruction due to adhesions Family History Other Coronary heart disease Social History Smoking Status: Never smoker Hx Alcohol Use: No Hx Substance Use: No Preferred Language: Moldovan Communication Ability: Unable Beliefs That Will Affect Care: None marital status: Current Living Situation: Spouse Other Information That Helps Us Care for You: No Feels Safe at Home: No Safety Concerns: Feels Safe At This Time Review of Systems Review of Systems: Unobtainable due to reduced consciousness Physical Exam Physical Exam: PE: Patient did not respond to voice or touch, appears comfortable at rest HEENT: Dry mucous membranes Respiratory: Clear breath sounds CV: Regular rate, no edema Abdomen: Soft, no grimace on palpation Extremities: Thin and cachectic Neuro: Unresponsive to voice or touch Results & Data ([facility]) Vital Signs (Past 12 Hours) Vital Signs Temp Pulse Resp BP BP Pulse Ox 01/15/20 14:59 97.7 F 72 21 138/67 94 01/15/20 11:15 97.9 F 73 23 180/78 H 97 01/15/20 07:40 98.1 F 79 20 158/95 H 98 PG Care Time/CCT Total # of Minutes Spent Total Time Spent with Patient: Total time spent 70 minutes with greater than 50% of the time spent at bedside reviewing patient's prognosis, treatment options and goals of care with family at bedside, case management present for part of visit. Coding Level of Care Code 40446 Inpt Consult Level 3 Diagnoses Goals of care, counseling/discussion Z71.89 Acute cardioembolic stroke I63.9 Atrial fibrillation I48.91 Atrial fibrillation type: unspecified Hypoxic R09.02 Time Spent (min) 70
[2020-01-16 06:34] LABS: BUN Creatinine Ratio 36.8 (10-20); Calcium 8.8 mg/dl (8.5-10.1); Creatinine Clr Calc Pharmacy 41.3 ml/min; Est GFR (African American) 77.4; Est GFR (Non-African American) 66.8; Potassium 3.6 mmol/L (3.5-5.1)
[2020-01-16] MEDS: HEPARIN SOD 5,000 UNIT/0.5 ML VIAL SQ SCH ×2 (08:09→20:46)
--- NOTE | 2020-01-16 11:41 | Palliative Care Progress Note ---
Date of Service January 16, 2020 Assessment & Plan (1) Goals of care, counseling/discussion: -Visited patient. No family at bedside. Per case management, patients did come to the bedside later int he day. -Patient continues to be unresponsive to verbal or tactile stimuli. -Patient currently on IV fluids, unable to place NG tube as patient unable to swallow. -Conversation held yesterday with family regarding risk vs benefits of permanent tube feeding. -Family stated they did not want a surgical feeding tube, would like to speak to other family members regarding returning home under hospice care-patient's would need help with her care at home. -Prognosis without food or fluids is approximately 14 days. -Family meeting planned for tomorrow () at 1430 to discuss goals of care, returning home with hospice vs. pursuing PEG placement option. -Patients body appears to be making this decision and likely would not be a good candidate for PEG placement. - PPS 10% (2) Acute cardioembolic stroke: (3) Atrial fibrillation: (4) Hypoxic: Admission and Anticipated Discharge Date Admission Date: January 11, 2020 Subjective patient moving her left arm and leg spontaneously during the visit. however, right arm/leg cont to be flaccid. she opens eyes briefly to her name being called. unable to speak or answer questions. quickly falls back asleep, and Cheye-Zimmerman respirations resume as soon as she falls asleep. a.fib remains rate controlled w/o medications. Physical Exam Physical Exam: PE: Patient did not respond to voice or touch, appears comfortable at rest HEENT: Dry mucous membranes Respiratory: some david zimmerman breathing, appears comfortable CV: tachcardic, no edema Abdomen: Soft, no grimace on palpation Extremities: Thin and cachectic Neuro: Unresponsive to voice or touch Results & Data ([facility]) Vital Signs (Past 12 Hours) Vital Signs Temp Pulse Resp BP Pulse Ox 01/16/20 11:16 36.6 C 83 17 170/98 H 97 01/16/20 07:11 36.5 C 66 17 156/73 H 95 01/16/20 03:09 36.6 C 53 L 17 142/65 H 98 PG Care Time/CCT Total # of Minutes Spent Total Time Spent with Patient: Total time spent is greater than 50% in coordination of care (as documented) at patient's floor/unit and/or counseling patient: 25 Coding Level of Care Code 05054 Subseq Hosp Care Lvl 2 Diagnoses Goals of care, counseling/discussion Z71.89 Acute cardioembolic stroke I63.9 Atrial fibrillation I48.91 Atrial fibrillation type: unspecified Hypoxic R09.02 Time Spent (min) 25 Time Spent Midlevel Total time spent 25 minutes with > 50% of that time spent assessing the patient and collaborating with nursing IDT. (1) Atrial fibrillation Atrial fibrillation type: unspecified Qualified Code(s): I48.91 - Unspecified atrial fibrillation
--- NOTE | 2020-01-16 14:02 | Hospitalist Progress Note ---
Date of Service January 16, 2020 Assessment & Plan (1) Acute cardioembolic stroke: severe left-sided MCA territory stroke with visible thrombus within the left MCA. etiology -- likely cardioembolic in origin. her significantly depressed LV function along with chronic a.fib - despite use of eliquis - likely caused her stroke. continues with Js-Zimmerman respirations. most recent CT head with worsening edema - no herniation seen. pupils very small suggesting potential for increased pressure on the lelia. we are 5 days post-CVA. peak of brain edema would have been yesterday/today. [id number] I am not optimistic there will be any dramatic improvement in overall condition. she has shown no improvement over the last 5 days. cont NPO status. PT/OT/speech evals appreciated. heparin SC for DVT proph. ultimately will need to restart anticoagulation - likely coumadin rather than novel agent - if she survives this CVA. lipids are controlled but would ultimately still need statin given her CAD history and now the stroke. HOB at 45 degrees. Aspiration and seizure precautions. BP remains acceptable w/o meds. Asa 300mg SC daily for secondary prevention. neurology - appreciate their assistance. prognosis very poor. palliative care consult requested -- to have another meeting tomorrow on at 230pm to discuss moving to hospice if no change in status. I had long discussion with and daughter today. He again feels that his would NOT want to live in this state and would NOT want PEG. They both agree she would never want long-term snf placement. She remains DNR. d/c tele - move to med/surg. (2) Js-Zimmerman respiration: 2nd to severe stroke with cerebral edema. CHF can contribute but unlikely cause. (3) Acute on chronic combined systolic and diastolic congestive heart failure: Appears mildly intravascularly volume contracted. Na 146. NO lasix today. She will ultimately need BB and JUAN/ARB if she survives her acute stroke. EF 25-30%. I have requested records from [facility] - they arrived. Records allude to CHF but no echo or other cardiac testing found. (4) Ischemic cardiomyopathy: Echo shows akinetic inferior wall and significant hypokinesis of other LV regions. This is c/w ischemic cardiomyopathy. By the daughter's report she had an NSTEMI in the past. Was hospitalized in [place] - or perhaps [facility] - in the past for cardiac issues but details are limited. (5) CAD (coronary artery disease): Will need asa, BB, statin. Apparently has had NSTEMI in past and ?cath but no stents. (6) Hypokalemia: resolved. (7) Atrial fibrillation: Rates controlled w/o AV kang agent. (8) Chronic kidney disease, stage 3a: Cr stable. BMP in am. (9) Hypernatremia: give additional 1/2 NS today and repeat BMP in am. (10) Coma scale, best verbal response, none, 24 hours or more after hospital admission: (11) DVT prophylaxis: heparin SC updated 01/11, 01/12, 01/14 and daughter updated extensively today prognosis is guarded/very poor she remains DNR unable to place coresafe for enteral feedings in midst of apnea/Js-Zimmerman respirations and severe dysphagia states patient would not want permanent PEG appreciate palliative care consult and support to have another meeting tomorrow about 230 with palliative, employment evaluator/case manager, and care team likely transition to comfort and hospice home with hospice if family able to do so?? can move to med/surg today Admission and Anticipated Discharge Date Admission Date: January 11, 2020 Subjective during the visit pt's and daughter were at bedside. staff report no change in overall condition since yesterday. Js-zimmerman respirations continue. during my assessment patient did not wake at all except for 1 second one time. quickly her eyes closed. did not follow commands today for me. states she was awake briefly earlier in his visit. tele with rate-controlled a.fib. Review of Systems Review of Systems: Unobtainable due to reduced consciousness Physical Exam Constitutional: + frail appearing and + lethargic; no acute distress Eyes: reactive pupils (But pupils remain small, about 2mm in size) ENMT: external ear and nose normal, oropharynx normal (?bite hardy tip of tongue vs irritation?) Mouth: + dry oral mucous membranes Respiratory: + tachypneic (Js-Strokes respirations ) Auscultation: + rales (both bases, L>R) Cardiovascular: Rate/Rhythm: regular rate and + irregularly irregular Heart Sounds: normal S1, normal S2 and + murmur (2/6 RUSB - systolic; 3/6 systolic LLSB/axillae) Vessels: posterior tibial pulses present and dorsalis pedis pulses present; no JVD Gastrointestinal (Abdomen): normal bowel sounds, soft, nontender, no hepatosplenomegaly Neurologic: + focal motor deficit (flaccid RUE/RLE; right facial droop) Psychiatric: Orientation: + not alert (lethargic ) and + not oriented x 3 Results & Data Results & Data ([facility]) Vital Signs (Past 12 Hours) Vital Signs Temp Pulse Resp BP Pulse Ox 01/16/20 11:16 36.6 C 83 17 170/98 H 97 01/16/20 07:11 36.5 C 66 17 156/73 H 95 01/16/20 03:09 36.6 C 53 L 17 142/65 H 98 Laboratory Results Laboratory Results - last 24 hr 01/16/20 05:20 Sodium 146 H Potassium 3.6 Chloride 110 H Carbon Dioxide 28 Anion Gap 8.0 BUN 29 H Creatinine 0.80 Est Cr Clr Drug Dosing 41.3 Est GFR ( Amer) 77.4 Est GFR (Non-Af Amer) 66.8 BUN/Creatinine Ratio 36.8 H Glucose 92 Calcium 8.8 PG Care Time/CCT Total # of Minutes Spent Total Time Spent with Patient: Total time spent is greater than 50% in coordination of care (as documented) at patient's floor/unit and/or counseling patient: Coding Level of Care Code 22346 Subseq Hosp Care Lvl 3 Diagnoses Acute cardioembolic stroke I63.9 Js-Zimmerman respiration R06.3 Acute on chronic combined systolic and diastolic congestive heart failure I50.43 Ischemic cardiomyopathy I25.5 CAD (coronary artery disease) I25.10 Associated angina: without angina Coronary Disease-Associated Artery/Lesion type: [place] artery [place] vs. transplanted heart: [place] heart Hypokalemia E87.6 Atrial fibrillation I48.91 Atrial fibrillation type: unspecified Chronic kidney disease, stage 3a N18.3 Hypernatremia E87.0 Coma scale, best verbal response, none, 24 hours or more after hospital admission R40.2214 DVT prophylaxis Z29.9 (1) CAD (coronary artery disease) Associated angina: without angina Coronary Disease-Associated Artery/Lesion type: [place] artery [place] vs. transplanted heart: [place] heart Qualified Code(s): I25.10 - Atherosclerotic heart disease of [place] coronary artery without angina pectoris (2) Atrial fibrillation Atrial fibrillation type: unspecified Qualified Code(s): I48.91 - Unspecified atrial fibrillation
[2020-01-16] MEDS: ASPIRIN 300 MG SUPP PR SCH (14:43)
[2020-01-16] MEDS ORDERED: SODIUM CHLORIDE 0.45 % 1,000 ML IV SCH (17:47)
[2020-01-17 07:42] LABS: BUN Creatinine Ratio 33.7 (10-20); Creatinine Clr Calc Pharmacy 38.4 ml/min; Est GFR (African American) 70.9; Est GFR (Non-African American) 61.2; Potassium 3.7 mmol/L (3.5-5.1)
[2020-01-17] MEDS: HEPARIN SOD 5,000 UNIT/0.5 ML VIAL SQ SCH (07:50)
[2020-01-17] MEDS: ASPIRIN 300 MG SUPP PR SCH (13:15)
--- NOTE | 2020-01-17 15:21 | Palliative Care Progress Note ---
Date of Service January 17, 2020 Assessment & Plan (1) Goals of care, counseling/discussion: Patient is an 84-year-old female who had prior to this admission been independent, she has a history of A. fib-on Eliquis, hypertension, HLD, CHF. She had a history of a small bowel obstruction with lysis of adhesions in April 2019. On 01/10 patient was found by her to be unresponsive-she was brought to [facility] where she was found to have a large left MCA CVA. CTA showed occlusion of left MCA at point of origin-likely embolic. Patient's CODE STATUS is currently DNR/DNI. -Met with patient's daughter, Myrna and [id number], Marina and 2 sons-they report that yesterday patient did open her eyes and her gaze appeared to be focused. Patient is not responding to voice or touch today, but did open her eyes at the end of the visit -Patient currently on IV fluids, unable to place NG tube as patient unable to swallow -Discussed with family goals of care-family would like to take patient to her own home with hospice care. Discussed that IV fluids at some point will become harmful, did not recommend going home with IV fluids -Discussed end-of-life issues as well as care at home in detail with family at bedside. -Family stated they did not want a surgical feeding tube - PPS 10% (2) Acute cardioembolic stroke: (3) Atrial fibrillation: Rate controlled Atrial fibrillation type: unspecified Qualified Code(s): I48.91 - Unspecified atrial fibrillation (4) Hypoxic: Stable on 2 L O2 (2) Acute cardioembolic stroke: (3) Atrial fibrillation: (4) Hypoxic: Admission and Anticipated Discharge Date Admission Date: January 11, 2020 Subjective Patient seen and examined, case management and family members at bedside, patient's daughter, 2 sons and [id number] present for family meeting at bedside. Patient has suffered a large left MCA stroke-is minimally responsive although she did open her eyes at the end of our visit. Asked her if she wanted to go home and she raised her eyebrows. Discussed IV fluids at length with family-fluids can be harmful when they start third spacing and given her inability to swallow any medications it would not be possible to get the fluid out. Discussed end-of-life issues at length as well as care once patient returns home. Plan is to return home with hospice care. Review of Systems Review of Systems: Expressive aphasia, patient unable to nod yes or no Physical Exam Physical Exam: PE: Patient did not respond initially to voice or touch, did respond towards the end of the visit by opening her eyes-gaze focused, looking around the room at family members present. Patient did not attempt to speak, unable to nod yes or no to simple questions. She did raise her eyebrows when asked if she wanted to go home. HEENT: EOMI, dry mucous membranes Respirations: Clear breath sounds bilaterally, unlabored CV: Regular rate, no edema Abdomen: Not distended Extremities: Thin Neuro: Awake, appears to understand when spoken to, unable to nod yes or no or respond verbally. Results & Data ([facility]) Vital Signs (Past 12 Hours) Vital Signs Temp Pulse Resp BP Pulse Ox 01/17/20 07:19 97.7 F 77 18 147/93 H 96 PG Care Time/CCT Total # of Minutes Spent Total Time Spent with Patient: Total time spent 35 minutes with greater than 50% of the time spent at bedside discussing goals of care, end-of-life issues and care at home with family, attending physician and case management. Coding Level of Care Code 92632 Subseq Hosp Care Lvl 3 Diagnoses Goals of care, counseling/discussion Z71.89 Acute cardioembolic stroke I63.9 Atrial fibrillation I48.91 Atrial fibrillation type: unspecified Hypoxic R09.02 Time Spent (min) 35 (1) Atrial fibrillation Atrial fibrillation type: unspecified Qualified Code(s): I48.91 - Unspecified atrial fibrillation
[2020-01-17] MEDS ORDERED: MoRPHine SULFATE 5 MG/0.25 ML UDP PO PRN (18:37)
--- NOTE | 2020-01-17 23:10 | Hospitalist Progress Note ---
Date of Service January 17, 2020 Assessment & Plan (1) Acute cardioembolic stroke: severe left-sided MCA territory stroke with visible thrombus within the left MCA. etiology -- likely cardioembolic in origin. her significantly depressed LV function along with chronic a.fib - despite use of eliquis - likely caused her stroke. continues with Js-Zimmerman respirations. most recent CT head with worsening edema - no herniation seen. pupils very small suggesting potential for increased pressure on the lelia. we are 5 days post-CVA. peak of brain edema would have been yesterday/today. [id number] I am not optimistic there will be any dramatic improvement in overall condition. she has shown no improvement over the last 5 days. cont NPO status. PT/OT/speech evals appreciated. heparin SC for DVT proph. ultimately will need to restart anticoagulation - likely coumadin rather than novel agent - if she survives this CVA. lipids are controlled but would ultimately still need statin given her CAD history and now the stroke. HOB at 45 degrees. Aspiration and seizure precautions. BP remains acceptable w/o meds. Asa 300mg [place] daily for secondary prevention. neurology - appreciate their assistance. prognosis very poor. palliative care consult requested -- Plan for Home Hospice. Likely discharge on 01/17 I had long discussion with and daughter today. He again feels that his would NOT want to live in this state and would NOT want PEG. They both agree she would never want long-term custodial placement. She remains DNR. d/c tele - move to med/surg. (2) Js-Zimmerman respiration: 2nd to severe stroke with cerebral edema. CHF can contribute but unlikely cause. (3) Acute on chronic combined systolic and diastolic congestive heart failure: Appears mildly intravascularly volume contracted. Na 146. NO lasix today. She will ultimately need BB and JUAN/ARB if she survives her acute stroke. EF 25-30%. I have requested records from [facility] - they arrived. Records allude to CHF but no echo or other cardiac testing found. (4) Ischemic cardiomyopathy: Echo shows akinetic inferior wall and significant hypokinesis of other LV regions. This is c/w ischemic cardiomyopathy. By the daughter's report she had an NSTEMI in the past. Was hospitalized in [place] - or perhaps [facility] - in the past for cardiac issues but details are limited. (5) CAD (coronary artery disease): Will need asa, BB, statin. Apparently has had NSTEMI in past and ?cath but no stents. (6) Hypokalemia: resolved. (7) Atrial fibrillation: Rates controlled w/o AV kang agent. (8) Chronic kidney disease, stage 3a: Cr stable. (9) Hypernatremia: fluids will be stopped as moving to home hospice (10) Coma scale, best verbal response, none, 24 hours or more after hospital admission: (11) DVT prophylaxis: heparin SC updated 01/11, 01/12, 01/14 and daughter updated extensively today prognosis is guarded/very poor she remains DNR unable to place coresafe for enteral feedings in midst of apnea/Js-Zimmerman respirations and severe dysphagia states patient would not want permanent PEG appreciate palliative care consult and support will be discharged likely on 01/17 on home hospice Admission and Anticipated Discharge Date Admission Date: January 11, 2020 Subjective Patient has no complaints as non verbal. Family at bedside and agree to home with hospice. Review of Systems Review of Systems: All systems reviewed & are unremarkable except as noted in HPI & below Physical Exam Physical Exam: Constitutional: + frail appearing and + lethargic; no acute distress Eyes: reactive pupils (But pupils remain small, about 2mm in size) ENMT: external ear and nose normal, oropharynx normal (?bite hardy tip of tongue vs irritation?) Mouth: + dry oral mucous membranes Respiratory: + tachypneic (Js-Strokes respirations ) Auscultation: + rales (both bases, L>R) Cardiovascular: Rate/Rhythm: regular rate and + irregularly irregular Heart Sounds: normal S1, normal S2 and + murmur (2/6 RUSB - systolic; 3/6 systolic LLSB/axillae) Vessels: posterior tibial pulses present and dorsalis pedis pulses present; no JVD Gastrointestinal (Abdomen): normal bowel sounds, soft, nontender, no hepatosplenomegaly Neurologic: + focal motor deficit (flaccid RUE/RLE; right facial droop) Psychiatric: Orientation: + not alert (lethargic ) and + not oriented x 3 Results & Data Results & Data ([facility]) Vital Signs (Past 12 Hours) Vital Signs Temp Pulse Resp BP Pulse Ox 01/17/20 22:55 36.6 C 81 16 175/82 H 96 01/17/20 15:52 36.9 C 87 16 171/85 H 97 PG Care Time/CCT Total # of Minutes Spent Total Time Spent with Patient: Total time spent is greater than 50% in coordination of care (as documented) at patient's floor/unit and/or counseling patient: Coding Level of Care Code 10664 Subseq Hosp Care Lvl 3 Diagnoses Acute cardioembolic stroke I63.9 Js-Zimmerman respiration R06.3 Acute on chronic combined systolic and diastolic congestive heart failure I50.43 Ischemic cardiomyopathy I25.5 CAD (coronary artery disease) I25.10 Associated angina: without angina Coronary Disease-Associated Artery/Lesion type: [place] artery [place] vs. transplanted heart: [place] heart Hypokalemia E87.6 Atrial fibrillation I48.91 Atrial fibrillation type: unspecified Chronic kidney disease, stage 3a N18.3 Hypernatremia E87.0 Coma scale, best verbal response, none, 24 hours or more after hospital admission R40.2214 DVT prophylaxis Z29.9 Time Spent (min) 35 (1) CAD (coronary artery disease) Associated angina: without angina Coronary Disease-Associated Artery/Lesion type: [place] artery [place] vs. transplanted heart: [place] heart Qualified Code(s): I25.10 - Atherosclerotic heart disease of [place] coronary artery without angina pectoris (2) Atrial fibrillation Atrial fibrillation type: unspecified Qualified Code(s): I48.91 - Unspecified atrial fibrillation
--- NOTE | 2020-01-18 11:19 | Discharge Summary ---
Date of Service January 18, 2020 Admission HPI Per Admitting Provider 84-year-old female who was brought in by EMS. She woke up and was acting normally around 5 AM. They note that she was found by the to be unresponsive. EMS was called. They found a right-sided upper extremity flaccid unresponsive and hypoxic. History is limited. They noted decreased breath sounds on the left and with hypoxia called in For medical command.History is otherwise limited with exception that her diuretics have recently been increased. Principal Diagnosis STroke Discharge Exam Constitutional WD/WN, vitals as above + acute distress and + frail appearing Eyes no conjunctival abnormality ENMT external ear and nose normal, oropharynx normal Neck trachea midline, no thyromegaly normal visual inspection Respiratory normal respiratory effort, lungs clear to auscultation no respiratory distress Cardiovascular RRR, no murmur, no edema Gastrointestinal (Abdomen) Inspection/Auscultation: abdomen normal to inspection; abdomen not distended Musculoskeletal no cyanosis or clubbing, extremities motor strength 5/5 Skin no rashes, warm and dry Neurologic + does not move all extremities and + not awake Psychiatric Orientation: cooperative; + not alert and + not oriented to person Discharge Data Allergies Allergy/AdvReac Type Severity Reaction Status Date / Time No Known Allergies Allergy Unverified 01/11/20 12:11 Consultations 01/11/20 11:25 ED Decision to Admit Stat 01/11/20 13:52 Consult Case Management - Discharge Planning Routine Consult Case Management - Discharge Planning Routine Consult Neurology Routine 01/12/20 17:03 Consult Health Information Management Routine 01/15/20 11:20 Consult Palliative Care Routine Ordered Studies 01/11/20 10:07 CT angio head w con Stat CT angio neck with con Stat CT head/brain wo con Stat 01/11/20 16:00 MR brain wo con Routine 01/12/20 10:00 CT head/brain wo con Routine 01/13/20 10:49 CT head/brain wo con Routine 01/15/20 07:45 CT head/brain wo con Routine Hospital Course (1) Acute cardioembolic stroke: severe left-sided MCA territory stroke with visible thrombus within the left MCA. etiology -- likely cardioembolic in origin. her significantly depressed LV function along with chronic a.fib - despite use of eliquis - likely caused her stroke. continues with Js-Zimmerman respirations. most recent CT head with worsening edema - no herniation seen. pupils very small suggesting potential for increased pressure on the lelia. we are 5 days post-CVA. peak of brain edema would have been yesterday/today. [id number] I am not optimistic there will be any dramatic improvement in overall condition. she has shown no improvement over the last 5 days. cont NPO status. PT/OT/speech evals appreciated. heparin SC for DVT proph. ultimately will need to restart anticoagulation - likely coumadin rather than novel agent - if she survives this CVA. lipids are controlled but would ultimately still need statin given her CAD history and now the stroke. HOB at 45 degrees. Aspiration and seizure precautions. BP remains acceptable w/o meds. Asa 300mg ID daily for secondary prevention. neurology - appreciate their assistance. prognosis very poor. palliative care consult requested -- Plan for Home Hospice. Likely discharge on 01/17 I had long discussion with and daughter today. He again feels that his would NOT want to live in this state and would NOT want PEG. They both agree she would never want long-term alf placement. She remains DNR. d/c tele - move to med/surg. (2) Js-Zimmerman respiration: 2nd to severe stroke with cerebral edema. CHF can contribute but unlikely cause. (3) Acute on chronic combined systolic and diastolic congestive heart failure: Appears mildly intravascularly volume contracted. Na 146. NO lasix today. She will ultimately need BB and JUAN/ARB if she survives her acute stroke. EF 25-30%. I have requested records from [facility] - they arrived. Records allude to CHF but no echo or other cardiac testing found. (4) Ischemic cardiomyopathy: Echo shows akinetic inferior wall and significant hypokinesis of other LV regions. This is c/w ischemic cardiomyopathy. By the daughter's report she had an NSTEMI in the past. Was hospitalized in [place] - or perhaps [facility] - in the past for cardiac issues but details are limited. (5) CAD (coronary artery disease): Will need asa, BB, statin. Apparently has had NSTEMI in past and ?cath but no stents. (6) Hypokalemia: resolved. (7) Atrial fibrillation: Rates controlled w/o AV kang agent. (8) Chronic kidney disease, stage 3a: Cr stable. (9) Hypernatremia: fluids will be stopped as moving to home hospice (10) Coma scale, best verbal response, none, 24 hours or more after hospital admission: (11) DVT prophylaxis: heparin SC updated 01/11, 01/12, 01/14 and daughter updated extensively today prognosis is guarded/very poor she remains DNR unable to place coresafe for enteral feedings in midst of apnea/Js-Zimmerman respirations and severe dysphagia states patient would not want permanent PEG appreciate palliative care consult and support will be discharged likely on 01/17 on home hospice Total Time Total Time Spent Total Time Spent (In Minutes): 35 Discharge Plan Discharge Items Patient Disposition: Hospice - Home Reason For Visit: LEFT MCA DISTRIBUTION STROKE Discharge Diagnosis: Stroke Activity: As commented below Activity Comment: As able Non-emergency contact: Primary Care Provider Call non-emergency contact if: your symptoms worsen and your pain is not controlled Follow-up/Referrals: Sree Gallegos M.D. [Primary Care Provider] - Diet: Other - See Diet Comment Diet Comment: Liquids as desired for comfort Addtl Attending Provider Instructions: Pending Studies at Discharge: No Stand-Alone Forms: My [facility] Medications and DC Order Prescriptions: New morphine concentrate 100 mg/5 mL (20 mg/mL) Solution 5 mg buccal Q4H PRN (Reason: Pain or shortness of breath) Qty: 15 RF: 0 ondansetron 4 mg tablet,disintegrating 4 mg PO Q6H PRN (Reason: nausea and vomiting) Qty: 20 RF: 0 Discharge Orders: Discharge Order (Routine); Ordered 01/18/20 Ordered By: Dhruv Garcia Admission Data Admit Date/Time: 01/11/20 12:43 Attending Provider: Dhruv Garcia Admit Provider: Robbie Espinoza Primary Care Provider: Sree Gallegos Other Providers: Lotus Harrison ; Chaparrita Moore ; [facility] ; Dhruv Garcia Coding Level of Care Code D/C Day Management >30 mins Diagnoses Acute cardioembolic stroke I63.9 Js-Zimmerman respiration R06.3 Acute on chronic combined systolic and diastolic congestive heart failure I50.43 Ischemic cardiomyopathy I25.5 CAD (coronary artery disease) I25.10 Coronary Disease-Associated Artery/Lesion type: [place] artery [place] vs. transplanted heart: [place] heart Associated angina: without angina Hypokalemia E87.6 Atrial fibrillation I48.91 Atrial fibrillation type: unspecified Chronic kidney disease, stage 3a N18.3 Hypernatremia E87.0 Coma scale, best verbal response, none, 24 hours or more after hospital admission R40.2214 DVT prophylaxis Z29.9
[2020-01-18] MEDS: ASPIRIN 300 MG SUPP PR SCH (14:29)
--- NOTE | 2020-01-24 14:20 | Coding Query ---
CODING QUERY To promote full compliance with coding requirements relating to patient care, provider participation is requested in all cases of wax pattern coater uncertainty. Please assist us with the question(s) below: Coding Question(s): There is documentation of Acute Left MCA Stroke with documentation on Neurology Consultation of cardioembolic stroke mechanism and documentation on Neurology Progress Note on 01/14/20 of, "Acute large left hemispheric ischemic infarct due to thrombosis of the left middle cerebral artery" and documentation on the Discharge Summary of, "Acute cardioembolic stroke: severe left-sided MCA territory stroke with visible thrombus within the left MCA. etiology -- likely cardioembolic in origin". Please specify below, in your clinical opinion, regarding the Acute Left MCA Stoke. ( x ) Acute Stroke of Left MCA, due to embolism ( ) Acute Stroke of Left MCA, due to thrombus ( ) Other: Please Specify Physician's Response(s): Thank you Allegra Sams Principal Diagnosis: "that condition established after study, to be chiefly responsible for occasioning the admission of the patient to the hospital for care." Co-Existing Principal Diagnosis: "when two or more diagnoses equally meet the criteria for principal diagnosis as determined by the circumstances of admission, diagnostic work up, and/or therapy provided, and the Alphabetic Index, Tabular List, or another coding guideline does not provide sequencing direction, any one of the diagnoses may be sequenced first." "When the physician has documented what appears to be a current diagnosis in the body of the record, but has not included the diagnosis in the final diagnostic statement, the physician should be asked whether the diagnosis should be added." (Source Coding [facility] 2 QTR90. p3-4) JUANCARLOS
== END 2020-01-18 14:29 | disposition hospice, home (50) | DRG 64 ==
LOC: ED 10:05 → 2E 12:43 → SUATTDRO 12:43 → 2E 13:11 → 2W 01-16 15:51